=== PATIENT | male | born 1960 | race Caucasian/White ===

== ENCOUNTER 2020-07-02 08:30 | Emergency (ER) | payer MEDICARE, MEDICAID, SELFPAY ==
[2020-07-02 08:31] VITALS: BP 119/87; PULSE 115; RESP 18; TEMP 35.9; O2SAT 96; BMI 32.1
--- NOTE | 2020-07-02 08:48 | CT_ITS ---
STUDY: CT ABDOMEN AND PELVIS WITH CONTRAST REASON FOR EXAM: Male, 59 years old. Abdominal pain . One week history. History of renal carcinoma and prior right nephrectomy. -- IV PO Contrast RADIATION DOSAGE (If Supplied By Facility): CTDIvol = ( 21.86 ) mGy, DLP = ( 1541.78 ) mGycm TECHNIQUE: Transaxial images were obtained from the dome of the diaphragm to the symphysis pubis with oral contrast. Oral and amp;amp; IV Gastrografin and amp;amp; 100mL Isovue-300 was administered. Sagittal and coronal images were reconstructed. Individualized dose optimization techniques were used for this CT. COMPARISON: None. FINDINGS: The visualized lung bases are unremarkable. The visualized portions of the heart are within normal limits. There is decreased attenuation of the liver consistent with steatosis. Hepatomegaly. Normal gallbladder and extrahepatic biliary system. Normal spleen. Normal pancreas. Normal bilateral adrenal glands. The patient is status post right nephrectomy. 1.9 cm cyst in the anterior midportion of the left kidney. Normal visualized stomach. Normal small intestine. There are multiple colonic diverticula consistent with diverticulosis. The appendix is visualized and appears normal. There is diffuse atherosclerotic calcification of the abdominal aorta, without a demonstrated aneurysm. Normal inferior vena cava. Normal retroperitoneum. Normal urinary bladder. Normal abdominal wall. Prior laminectomy and interpedicular screw and abigail fixation at the L4-L5 and L5-S1 levels. CT/Abdomen/Pelvis WITH Contrast IMPRESSION: Sigmoid diverticulosis. Hepatomegaly and diffuse fatty infiltration of the liver. Status post right nephrectomy. Electronically Signed: Davis Infante MD at 11:15 EDT , Service support ,
--- NOTE | 2020-07-02 08:50 | ED.VIS.GEN ---
History of Present Illness Chief Complaint: Abd Pain Narrative: This patient is a 59-year-old male who presents with abdominal pain. This began about 1 week ago. It became severe yesterday. His pain is diffuse, nonfocal throughout the abdomen. He describes it as cramping in nature. It does radiate into his back. He reports nausea without vomiting. Diarrhea began yesterday. No blood in the stool. No urinary symptoms. He has a history of nephrectomy for kidney cancer. He denies any other abdominal surgeries. No fevers. Past Medical History - Allergies and Home Meds Allergies/Adverse Reactions: Allergies No Known Allergies Allergy (Verified 07/02/20 08:39) Primary Care Physician: Nathan Yousif DO [Primary Care Provider] - Past Medical History: - - Renal cancer Smoking Status: Current every day smoker Review of Systems All systems negative except as indicated General: Denies: Fever Eyes: Denies: Visual changes - bilaterally ENT: Denies: Bilateral ear pain Cardiovascular: Denies: Chest pain Respiratory: Denies: Dyspnea Gastrointestinal: Reports: Abdominal pain, Nausea, Diarrhea. Denies: Vomiting Musculoskeletal: Reports: Back pain. Denies: Myalgias, Arthralgias Skin: Denies: Rash Neurological: Denies: Headache Hematologic: Denies: Easy bruising Physical Exam Vital Signs/Narrative: Vital Signs Temp Pulse Resp BP Pulse Ox 07/02/20 08:31 96.6 F L 115 H 18 119/87 H 96 Inital Vital Signs reviewed: Yes General: Well nourished, Well developed Head: Normocephalic Eyes: EOMI ENT: Moist mucous membranes Neck: Supple Cardiovascular: Regular rhythm, Tachycardia Respiratory: No distress, CTA bilaterally Abdomen: Soft, Tender, - - Diffuse nonfocal abdominal tenderness without guarding without rebound nondistended. Negative for: Nondistended, Guarding, Rebound tenderness Skin: Normal color Neurological: Alert Psychological: Normal affect Diagnostic/Tx/Re-eval Impressions Abdomen/Pelvis CT 07/02/20 08:48 IMPRESSION: Sigmoid diverticulosis. Hepatomegaly and diffuse fatty infiltration of the liver. Status post right nephrectomy. Electronically Signed: Davis Infante MD at 11:15 EDT , Service support , 07/02/20 08:48 Abdomen/Pelvis WITH Contrast [CT] Stat Laboratory Results 07/02/20 07/02/20 07/02/20 08:50 08:50 12:00 WBC 8.8 RBC 5.32 Hgb 17.4 H Hct 51.6 MCV 97.0 H MCH 32.7 H MCHC 33.7 RDW Std Deviation 44.3 H RDW Coeff of Maye 12.6 Plt Count 242 MPV 10.5 Immature Gran % (Auto) 0.300 Neut % (Auto) 73.1 H Lymph % (Auto) 12.9 L [place] % (Auto) 9.6 Eos % (Auto) 3.8 Baso % (Auto) 0.3 Absolute Neuts (auto) 6.4 Absolute Lymphs (auto) 1.13 Nucleated RBC % 0 Sodium 137 Potassium 4.3 Chloride 104 Carbon Dioxide 25.0 Anion Gap 8 BUN 35 H Creatinine 1.57 H Estim Creat Clear Calc 52.31 Est GFR (MDRD) Af Amer 58 L Est GFR (MDRD) Non-Af 48 L BUN/Creatinine Ratio 22.3 H Glucose 167 H Calcium 8.8 Total Bilirubin 0.60 AST 20 ALT 43 Alkaline Phosphatase 77 Total Protein 7.6 Albumin 4.0 Globulin 3.6 Albumin/Globulin Ratio 1.1 Lipase 117 Urine Color Yellow Urine Clarity Clear Urine pH 5.0 Ur Specific [place] 1.010 Urine Protein 30 H Urine Glucose (UA) Normal Urine Ketones Negative Urine Occult Blood Negative Urine Nitrite Negative Urine Bilirubin Negative Urine Urobilinogen Normal Ur Leukocyte Esterase Negative Urine RBC 0-5 SEEN Urine WBC 0-5 SEEN Ur Squamous Epith Cells 0-5 SEEN Urine Bacteria 0 SEEN Urine Mucus 0 SEEN - Medical Decision Making Patient was treated with IV fluids, morphine, Zofran. On reevaluation his symptoms are improved but not resolved. He was given intramuscular Bentyl. His laboratory studies are unremarkable. CT imaging of the abdomen shows diverticulosis without diverticulitis. Not otherwise show acute process to explain the patient's symptoms. At this point I discussed with him that there is no clear indication for hospitalization. We could write prescriptions for Bentyl and Zofran for symptom control and refer to general surgery for outpatient follow-up should his symptoms continue. He is agreeable to this plan. He does understand to return for new or worsening symptoms. All questions answered at bedside. Patient discharged. ED Disposition - Plan for ED Patient: Disposition: Home or Assisted Living Diagnosis: Abdominal pain Instructions: ED Unknown Causes of Abdominal ... Prescriptions: Dicyclomine HCl [Bentyl] 20 mg PO TIDAC #20 capsule Prescription Printed Ondansetron [Zofran Odt] 4 mg PO Q8H PRN PRN #10 tablet PRN Reason: Nausea Prescription Printed Referrals: Nathan Yousif DO [Primary Care Provider] -
[2020-07-02] MEDS: Ondansetron 4 MG/2 ML Vial IV (08:57)
[2020-07-02] MEDS: 0.9% Normal Saline 1,000 ML 1000 ML IV (08:57)
[2020-07-02] MEDS: Morphine 4 MG/ML Syringe IV (08:57)
[2020-07-02 09:12] LABS: Absolute Lymphocyte Count 1.13 X10^3/uL (0.83-4.51); Absolute Neutrophil Count 6.4 X10^3/uL (2.0-7.7); Basophil# 0.03 X10^3/uL; Basophil% 0.3 % (0-1); Eosinophil# 0.33 X10^3/uL; Eosinophils% 3.8 % (0-5); Hematocrit 51.6 % (40-54); Hemoglobin 17.4 g/dL (13.0-16.5); Lymphocyte # 1.13 X10^3/ul (4.0); Lymphocyte % 12.9 % (19-41); Mean Corp Hgb Conc 33.7 g/dL (32-36); Mean Corpuscular Hgb 32.7 pg (27.0-32.0); Mean Platelet Vol. 10.5 fl (6.2-12.0); Monocyte# 0.84 X10^3/uL; Monocyte% 9.6 % (0-10); NRBC Flagged by Analyzer 0 % (0-5); Neutrophil # 6.43 X10^3/uL (2.7-7.7); Neutrophil % 73.1 % (47-70); Platelet Count 242 K/mm3 (150-450); RBC Distribution Width CV 12.6 % (11.6-14.6); RBC Distribution Width SD 44.3 fl (35.1-43.9); Red Blood Count 5.32 M/mm3 (4.6-6.2); White Blood Count 8.8 K/mm3 (4.4-11.0)
[2020-07-02 09:27] LABS: ALB/GLOB Ratio 1.1 RATIO (0.9-2.4); AST(SGOT) 20 U/L (15-37); Alanine Aminotransfer ALT/SGPT 43 U/L (16-61); Alkaline Phosphatase 77 U/L (45-117); Anion Gap 8 (5-15); BUN 35 mg/dL (7-18); BUN/Creat Ratio 22.3 RATIO (10-20); Calcium,Total 8.8 mg/dL (8.5-10.1); Chloride 104 mmol/L (98-107); Creatinine, Serum 1.57 mg/dL (0.70-1.30); EST Glomerular Filtration Rate 48 mL/min (>60); Est Glom Filt Rate - Afr Amer 58 mL/min (>60); Estimated Creatinine Clearance 52.31 ml/min; Globulin 3.6 g/dL (2.2-4.2); Glucose 167 mg/dL (74-106); Lipase 117 U/L (73-393); Potassium 4.3 mmol/L (3.5-5.1); Protein, Total 7.6 g/dL (6.4-8.2); Sodium Level 137 mmol/L (136-145)
[2020-07-02 10:23] VITALS: PULSE 102; RESP 18; O2SAT 90
[2020-07-02 11:13] VITALS: BP 118/65; PULSE 94; RESP 18; O2SAT 96
[2020-07-02 12:06] LABS: Bacteria 0 SEEN /hpf (None Seen); Mucous, Urine 0 SEEN /hpf (<or=2+)
[2020-07-02 12:22] LABS: Color, Urine Yellow (Yellow); Glucose, Dipstick Normal (Normal); Ketone-Dipstick Negative (Negative); Leukocyte Esterase-Dipstick Negative /ul (Negative); Nitrite-Dipstick Negative (Negative); Occult Blood-Urine Negative /ul (Negative); Protein-Dipstick 30 mg/dl (Negative); Urine Bilirubin Dipstick Negative (Negative); Urine Clarity Clear (Clear); Urine Urobilinogen Normal (Normal)
[2020-07-02 12:33] LABS: Red Blood Cells-Urine 0-5 SEEN /hpf (0-5); Squamous Epithelial Cells - UA 0-5 SEEN /hpf (0-5); White Blood Cells 0-5 SEEN /hpf (0-5)
[2020-07-02] MEDS: Dicyclomine 20 MG/2 ML Vial IM (13:05)
[2020-07-02 13:28] VITALS: BP 124/77; PULSE 62; RESP 15; O2SAT 98
== END 2020-07-02 13:29 | disposition home or self-care (01) ==
PROVIDERS: Emergency Provider Emergency Medicine; PCP Preventive Medicine Occupational Medicine
DX: R10.9 Unspecified abdominal pain (principal); F17.200 Nicotine dependence, unspecified, uncomplicated; Z90.5 Acquired absence of kidney; Z85.528 Personal history of other malignant neoplasm of kidney
CPT/HCPCS: 74177; 80053; 81001; 83690; 85025; 96372; 96374; 96375; 99285; J7030; Q9967; J2405

== ENCOUNTER → 2020-12-17 16:17 | Outpatient (CLI) | payer MEDICARE, MEDICAID, SELFPAY ==
--- NOTE | 2020-12-17 16:18 | MRI_ITS ---
STUDY: MRI CERVICAL SPINE WITHOUT CONTRAST REASON FOR EXAM: Male, 60 years old. pain L arm/shoulder TECHNIQUE: Standardized fat and water weighted pulse sequences were obtained in the sagittal and axial planes. COMPARISON: 02/16/2013 FINDINGS: Normal foramen magnum and brainstem-cervical cord junction. Normal craniovertebral junction. Normal anterior atlantoaxial articulation. Normal odontoid process. There is straightening of the normal cervical lordosis. Normal vertebral bodies and posterior osseous elements. C2-3: Normal endplates. Normal disc height, signal and morphology. Normal central canal and intervertebral neural foramina. C3-4: No change in a moderate-sized central disc extrusion which produces moderate spinal stenosis with abutment of the central spinal cord. C4-5: No change in the moderate broad disc osteophyte complex asymmetric to the right with right uncovertebral hypertrophy which produces moderate spinal stenosis with abutment of the right hemicord and moderate right neural foraminal stenosis. C5-6: No change in mild broad disc osteophyte complex which produces mild spinal stenosis but no neural foraminal stenosis. C6-7: No change in the mild broad disc of C5 complex which results in mild frontal stenosis but no neural foraminal stenosis. C7-T1: Mild bilobed disc osteophyte complex and bilateral artery due to hypertrophy produces mild spinal stenosis and moderate bilateral neural foraminal stenosis. No change in myelomalacia at the level of C7. Normal visualized soft tissue structures. MRI/Spine Cervical (Routine) IMPRESSION: No change from 02/16/2013. Electronically Signed: Luis A Eduardo MD at 13:26 EDT Tel , Service support ,
== END ==
PROVIDERS: PCP Preventive Medicine Occupational Medicine; Referring Provider Orthopaedic Surgery; Visit Provider Orthopaedic Surgery
DX: M48.00 Spinal stenosis, site unspecified (principal); M51.24 Other intervertebral disc displacement, thoracic region; M54.2 Cervicalgia
CPT/HCPCS: 72141

== ENCOUNTER 2021-12-15 12:00 | Outpatient (RCR) | payer MEDICARE, MEDICAID, SELFPAY ==
--- NOTE | 2021-09-22 13:37 | HP.PTEVAL ---
Patient's Visit Information BECKY COSBY is a 61 year old M referred to Physical Therapy by LOUIS ORDOÑEZ with a diagnosis of LBP AND BLE WEAKNESS. POST LAMINECTOMY SYNDROME AND ABDNORMAL GAIT. Date of Evaluation: 09/22/21 Physical Therapist: Sofia Benitez, PT, Cert MDT - Visit Plan Frequency: 2-3x /Week Plan: *START VERY VERY SLOW X AT LEAST 2-3 VISITS. *NEUTRAL SPINE ONLY*. *FALL RISK*. AQUATIC THERAPY FOR PAIN RELEIF, POSTURE CORRECTION/STRENGTHENING, INSTRUCTION IN APPROPRIATE BODY MECHANICS AND ACTIVITY MODIFICATIONS. DLS WITH A NEUTRAL SPINE TOLERATED. KAN LE ROM, STRETCHING AND STRENGTHENING. HEP INSTRUCTION. - Subjective Work/Leisure: UNEMPLOYEED. Disability: YES - APPROX 2004 FOR SPINE. Present symptoms: KAN LOW BACK AND LEG PAIN L>R. KAN LE NUMBNESS AND TINGLING. NEUROPATHY. Present since: 1988. Pain Scale: WORST 10/10, LEAST 3/10. Currently: 4/10. Commenced as a result of: RUPTURED DISC IN LOW BACK FOR NO APPARENT REASON 1988. Worse: WALKING, STANDING, BENDING OVER, DOING DISHES, REACHING. Better: LAYING DOWN, PAIN MEDICINE. Disturbed sleep: YES. Previous history/Previous treatment: PHYSICAL THERAPY, PAIN MEDICATIONS, TENS UNIT, CHIROPRACTOR, INJECTIONS. 3 LUMBAR SX'S STARTING IN 1988 AND LAST LUMBAR SX WAS 2013 - RODS. 1 NECK SX - 2002. 2 THORACIC SX'S 2007 AND 2012. PT HAS NOT HELPED IN THE PAST BUT HASN'T TRIED AQUATIC THERAPY THOUGH. PATIENT REPORTS HE HAS AN OVER-ACTIVE IMMUNE SYSTEM THAT IS EATING HIS SPINE. Coughing/sneezing/straining: POSITIVE. Gait: WOBBLY. LIKE A DRUNK. TIME AND DISTANCE LIMITED DUE TO BACK AND LEG PAIN. Bowel or Bladder Dysfunction: NO. Accidents: NO. Unexplained weight loss: NO. Imaging: NONE RECENT. PMH/Recent major surgery: KIDNEY REMOVAL FOR CA 2 YEARS AGO - NO CHEMO OR RADIATION. NIDDM. HTN, DYPLOPIA OF EYES - DOUBLE OR BLURRED VISION - MUSCLE WEAKNESS - DOES DRIVE. 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 - Objective THIS PATIENT AMBULATES INDEP'LY INTO PT WITH A VERY UNSTEADY GAIT, DECREASED KAN STRIDE LENGTH AND WIDE BASE OF SUPPORT. AFTER ABOUT 100 FEET HE IS BARELY ABLE TO KEEP WALKING. AFTER SITTING DOWN TO REST FOR A FEW MINUTES HE IS ABLE TO GO AGAIN. HE IS UE DEPENDENT TO TRANSFER FROM SIT TO STAND. CORE STRENGTH IS POOR. KAN LE STRENGTH IS GROSSLY 4-/5 WITH MMT'ING THROUGHOUT. DECREASED LLE LIGHT TOUCH SENSATION COMPARED TO RIGHT. TIGHT KAN HS'S AND GASTROC SOLEUS COMPLEX'S. HIS STANDING BALANCE IS FAIR MINUS AND HIS DYNAMIC BALANCE IS POOR. TREATMENT: GAIT TRAINING WITH FWW. PATIENT IS ABLE TO TAKING BIGGER STRIDE LENGTH AND IMPROVE CADANCE WITH USE OF WALKER VS WITHOUT AND REPORTS FEELING SAFER. PATIENT HAS A FWW AT HOME. *THIS PT STRONGLY RECOMMENDED WALKER FOR SAFETY AT ALL TIMES. PATIENT REPORTS HE FEELS SAFER WITH A WALKER BUT HAS BEEN AFRAID TO GET DEPENDENT ON ONE. THIS PT EDUCATED PATIENT ON BENEFITS OF WALKER AND ROLLATOR USE. PATIENT AGREEABLE. - Balance/Special Test Scores Oswestry Low Back Score: 32 - Goals Goal 1:: DECREASE C/O BACK AND KAN LE SX'S. Goal Time Frame: 6-8 Weeks Goal 2:: IMPROVE STANDING, WALKING AND ADL FUNCTION Goal Time Frame: 6-8 Weeks Goal 3:: PATIENT WILL BE INDEP WITH A POOL PROGRAM FOR CONTINUED IMPROVEMENT ONCE FORMAL PHYSICAL THERAPY CONCLUDES. Goal Time Frame: 6-8 Weeks - Anticipated Interventions Patient/Client Instruction: Educate patient on: Condition, Plan of Care, Risk Factors For the Purpose of:: To improve self management Therapeutic Exercise to Include: Strength training, Balance training, Body mechanics, Postural training, Flexibilty training, Gait and locomotor training, Neuromotor development, Biofeedback, Dynamic Lumbar Stabilization For the Purpose of:: To decrease pain, To increase ROM, To improve muscle performance and motor function, To increase tolerance to activity/condition/position, To improve ability of physical actions for home/community/work/leisure, To improve gait and locomotor functions Thank you for the opportunity to evaluate your patient. For Medicare and Medicare HMO plans, please review the plan of care and approve it. It will need to be FAXED BACK to us at [phone] for Medicare purposes. For Medicare only, by signing this I certify the plan of care. Please let me know if there are questions or concerns regarding this plan of care. Physician Signature: Date:
--- NOTE | 2021-11-04 14:10 | HP.PTREVAL_ITS ---
LOUIS ORDOÑEZ, It has been my pleasure to treat BECKY COSBY over the last 6 visits for LBP AND BLE WEAKNESS. POST LAMINECTOMY SYNDROME AND ABDNORMAL GAIT. Please see the progress note below for an update on the physical therapy plan of care! Subjective: PATIENT ACCIDENTALLY WENT TO THE POOL FIRST FOR PT TODAY. PATIENT REPORTS THAT LONG HE IS IN THE WATER AND EXERCISING IT HELPS HIS PAIN. PATIENT REPORTS HE WOULD LIKE TO TRY AT LEAST A LITTLE MORE THERAPY. REPORTS THAT OVER-ALL HE IS STILL HAVING SEVERE PAIN WITH STANDING AND WALKING. Objective/Function: PATIENT WAS SEEN TODAY FOR RE-ASSESSMENT OF PROGRESS TOWARD THE SET PT GOALS AND THE NEED FOR FURTHER PHYSICAL THERAPY VS READINESS FOR DISCHARGE. UPON EXAM TODAY THERE ARE NO SIGNIFICANT OBJECTIVE CHANGES COMPARED TO INITAL EVAL BUT [place] IS A GOOD CANDIDATE TO CONTINUE AQUATIC THERAPY BECAUSE HE HAS ONLY BEEN ABLE TO ATTEND 4 VISITS AND HE IS AT LEAST REPORTING TEMPORARY PAIN RELIEF IN THE WATER. PATIENT REPORTS HE IS USING A WALKER AT TIMES BUT DID NOT BRING IT TODAY (NO CANE TODAY EITHER). THIS PT AGAIN HIGHLY RECOMMEND USE OF WALKER AT ALL TIMES FOR SAFETY BUT PATIENT NOT AGREEABLE. PATIENT INQUIRING ABOUT HP POOL MEMBERSHIP FOR THE FUTURE WHEN COMPLETED PT DUE TO PAIN RELIEF HE IS GETTING IN THE POOL. Plan Plan: *f/u with new HEP tasks. *FALL RISK*. AQUATIC THERAPY FOR PAIN RELEIF, POSTURE CORRECTION/STRENGTHENING, INSTRUCTION IN APPROPRIATE BODY MECHANICS AND ACTIVITY MODIFICATIONS. DLS WITH A NEUTRAL SPINE TOLERATED. KAN LE ROM, STRETCHING AND STRENGTHENING. HEP INSTRUCTION. Balance/Gait/Functional tests - Balance/Special Test Scores Oswestry Low Back Score: 32 Goals Goal 1:: DECREASE C/O BACK AND KAN LE SX'S. Goal Time Frame: 6-8 Weeks Goal Progress: Progressing Goal 2:: IMPROVE STANDING, WALKING AND ADL FUNCTION Goal Time Frame: 6-8 Weeks Goal Progress: Not Progressing Goal 3:: PATIENT WILL BE INDEP WITH A POOL PROGRAM FOR CONTINUED IMPROVEMENT ONCE FORMAL PHYSICAL THERAPY CONCLUDES. Goal Time Frame: 6-8 Weeks Goal Progress: Progressing Anticipated Interventions Patient/Client Instruction: Educate patient on: Condition, Plan of Care, Risk Factors For the Purpose of:: To improve self management Therapeutic Exercise to Include: Strength training, Balance training, Body mecha nics, Postural training, Flexibilty training, Gait and locomotor training, Neuromotor development, Biofeedback, Dynamic Lumbar Stabilization For the Purpose of:: To decrease pain, To increase ROM, To improve muscle performance and motor function, To increase tolerance to activity/condition/position, To improve ability of physical actions for home/community/work/leisure, To improve gait and locomotor functions Please do not hesitate to contact me at [phone] by phone or if you have questions or concerns regarding this new plan of care! Sincerely, Sofia Benitez, PT, Cert MDT
--- NOTE | 2021-12-15 12:36 | HP.PTDCSUM_ITS ---
It has been my pleasure to treat BECKY COSBY referred by LOUIS ORDOÑEZ, with the diagnosis of LBP AND BLE WEAKNESS. POST LAMINECTOMY SYNDROME AND ABDNORMAL GAIT for a total of 11 visit(s). Discharge Date: 12/15/21 Please see the following information for a summary of their discharge status. Subjective: PATIENT REPORTS HE IS STILL GETTING SEVERE PAIN WITH WALKING. PATIENT REPORTS PAIN REDUCTION WHILE IN THE POOL BUT EVEN WITH LIGHT POOL EX HE HAS INCREASED PAIN THE NEXT MORNING. FOLLOW UP PENDING WITH DR. BARDALES NEXT WEEK. REPORTS PAIN MGMT RECOMMENDS MORE JANAY'S BUT HE IS DECLINING AT THIS TIME. PATIENT REPORTS HE CAN GET MUCH BENEFIT FROM A HOT SHOWER AND A HEATING PAD HE CAN FROM GETTING IN THE POOL SO HE IS JUST GOING TO STICK WITH THAT. PATIENT REPORTS HE HAS A REFERRAL TO SEE AN DEPUTY [employer] ATTORNEY THAT HE PLANS TO PURSUE. Lumbar Spine Pain Intensity (Out of 10): 6 % Improvement: 0 Objective/Function: PATIENT WAS SEEN TODAY FOR RE-ASSESSMENT OF PROGRESS TOWARD THE SET PT GOALS AND THE NEED FOR FURTHER PHYSICAL THERAPY VS READINESS FOR DISCHARGE. UPON EXAM TODAY THERE ARE NO SIGNIFICANT OBJECTIVE CHANGES COMPARED TO INITAL EVAL. THIS PT AGAIN HIGHLY RECOMMENDS USE OF WALKER AT ALL TIMES FOR SAFETY BUT PATIENT NOT AGREEABLE. HE DID AMBULATE INTO PT TODAY WITH ONE FOREARM CRUTCH AND HE IS SAFER WITH THE CRUTCH THAN WITHOUT ANYTHING. PATIENT HAS ONLY ATTENDED APPROX 8 POOL SESSIONS SINCE INITIAL EVAL 09/22/21. PATIENT INQUIRING ABOUT HP POOL MEMBERSHIP FOR THE FUTURE WHEN COMPLETED PT DUE TO TEMPORARY PAIN RELIEF HE IS GETTING IN THE POOL. Goal 1:: DECREASE C/O BACK AND KAN LE SX'S. Goal Progress: Not Progressing Goal 2:: IMPROVE STANDING, WALKING AND ADL FUNCTION Goal Progress: Not Progressing Goal 3:: PATIENT WILL BE INDEP WITH A POOL PROGRAM FOR CONTINUED IMPROVEMENT ONCE FORMAL PHYSICAL THERAPY CONCLUDES. Goal Progress: Not Progressing Plan: D/C DUE TO LACK OF PROGRESS. PATIENT IS AGREEABLE. If there are questions or concerns regarding this patient's physical therapy, please feel free to call me at [phone]. Thank you for the referral of this patient. Sincerely, Sofia Benitez, PT, Cert MDT Balance/Gait/Functional tests - Balance/Special Test Scores Oswestry Low Back Score: 31
== END 2021-12-15 19:00 | disposition home or self-care (01) ==
LOC: PT 12:00
PROVIDERS: PCP Preventive Medicine Occupational Medicine
DX: M96.1 Postlaminectomy syndrome, not elsewhere classified (principal); R26.89 Other abnormalities of gait and mobility
CPT/HCPCS: 97113; 97162; 97164; 97530

== ENCOUNTER 2024-06-04 18:57 | Emergency (ER) | payer MEDICARE, MEDICAID, SELFPAY ==
[2024-06-04 18:58] VITALS: BP 188/80; PULSE 105; RESP 18; TEMP 36.4; O2SAT 100
[2024-06-04 19:57] VITALS: PULSE 100; RESP 18; O2SAT 100
[2024-06-04 20:04] VITALS: BMI 27.5
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
[2024-06-04 21:00] VITALS: PULSE 95; RESP 17; O2SAT 98
[2024-06-04] MEDS: Cephalexin 500 MG Capsule PO (21:25)
== END 2024-06-04 21:33 | disposition home or self-care (01) ==
PROVIDERS: Emergency Provider Emergency Medicine; PCP Preventive Medicine Occupational Medicine; Visit Provider Emergency Medicine
DX: S81.812A Laceration without foreign body, left lower leg, initial encounter (principal); E11.9 Type 2 diabetes mellitus without complications; S80.12XA Contusion of left lower leg, initial encounter; W22.8XXA Striking against or struck by other objects, initial encounter; Z79.84 Long term (current) use of oral hypoglycemic drugs; F17.210 Nicotine dependence, cigarettes, uncomplicated
CPT/HCPCS: 99282

== ENCOUNTER 2024-06-26 11:15 | Outpatient (RCR) | payer MEDICARE, MEDICAID, SELFPAY ==
[2024-06-12 10:25] VITALS: BP 172/105; PULSE 100; RESP 18; BMI 26.6
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
--- NOTE | 2024-06-13 09:56 | WC ---
PHOTO 06/12/24 LEFT LATERAL LE (I)
--- NOTE | 2024-06-13 10:01 | WC ---
PHOTO 06/12/24 LEFT LAT PEYTON (I)
--- NOTE | 2024-06-18 11:41 | WC ---
[facility] accepted and will start on MondayJune 24.
[2024-06-26 11:33] VITALS: BP 164/81; PULSE 100; RESP 18; TEMP 36.2; BMI 26.6
--- NOTE | 2024-06-26 14:19 | PCM.WC.PN ---
History of Present Illness Date of Service: 06/26/24 Chief Complaint: Full-thickness laceration left leg History of Wound: Full-thickness laceration left leg Progress of Wound: Stable full-thickness wound, left leg Subjective Subjective Mr. Avalos is a 63-year-old male presented wound care center today for follow-up evaluation of full-thickness wound secondary to trauma to the left leg. He has been doing dressing changes as ordered. He admits improvement to the leg. He missed his appointment last week due to ride issues. He still admits to smoking. Denies any new onset of trauma. Denies constitutional symptoms. No other pedal complaints at this time. Objective Data Objective Data Vital Signs: Vital Signs Temp Pulse Resp BP O2 Del Method 97.1 F L 100 18 164/81 H Room Air 06/26/24 11:33 06/26/24 11:33 06/26/24 11:33 06/26/24 11:33 06/26/24 11:33 Oxygen Delivery Method Room Air Weight: 81.647 kg Body Mass Index (BMI) 26.6 Lab / Micro Data Micro: Microbiology 06/12/24 11:00 Ulcer, Decubitus - Leg, Left Gram Stain - Final 06/12/24 11:00 Ulcer, Decubitus - Leg, Left Wound Culture - Final Staphylococcus cohnii urealyti 06/12/24 11:00 Ulcer, Decubitus - Leg, Left Anaerobic Culture - Final No growth in 5 days. Physical Exam Narrative Vascular: Audible Doppler sounds, DP is biphasic, PT is monophasic. Skin temperature gradient is warm to cool from proximal ankles to distal digits left lower extremity. CFT is brisk. Ecchymosis has improved to left lower extremity. Neurological: Light touch intact. Patient does respond to painful stimuli. Dermatological: Full-thickness wound to the left anterior leg measuring 9.5 x 6.3 x 0.2 cm. Hematoma has improved. Wound base is granular. No malodor or sign of infection. Excisional debridement down to and including subcutaneous tissue, fascia and muscle with a number 5 mm dermal curette and pickup to the full-thickness laceration/wound to the anterior lateral left leg. Predebridement measurement was 9.0 x 6.0 x 0.1 cm. Post right measurement is 9.5 x 6.3 x 0.2 cm. Musculoskeletal: Moderate palpatory tenderness appreciated to full-thickness laceration to left leg. No pain with calf compression. Debridement Note Debridement Note Debridement Free Text: Excisional debridement down to and including subcutaneous tissue, fascia and muscle with a number 5 mm dermal curette and pickup to the full-thickness laceration/wound to the anterior lateral left leg. Predebridement measurement was 9.0 x 6.0 x 0.1 cm. Post right measurement is 9.5 x 6.3 x 0.2 cm. Post-Debridement Measurements and Additional Note: Post-Debridement Measurements/Treatment WC - Nurse 1 - General Ulcer Assessment Start: 06/12/24 10:22 Freq: Status: Active Protocol: WC.LOWEXT Activity Type Activity Date Activity User E-sign Co-sign Detail Recorded Client Recorded Date Recorded By Document 06/12/24 10:25 KW [id number] 06/12/24 10:43 KW Document 06/26/24 11:33 KW [id number] 06/26/24 11:40 KW 06/12/24 06/26/24 10:25 11:33 WC - Today's Visit Information Type of service Initial Visit Follow-up Visit (Physician/SCALE ATTENDANT ) Arrival Mode Ambulatory, Ambulatory, Walker Walker Patient Identification Verified (Name & Yes Yes ) Height and Weight Height 5 ft 9 in Weight 81.647 kg Weight in Pounds 180.0 lbs Weight Measurement Method Estimated by Patient Body Mass Index (BMI) 26.6 26.6 BMI Classification Overweight Overweight Vital Signs Temperature (97.8 F-99.1 F) 97.1 F L Temperature Source Temporal Pulse Rate (60-100) 100 100 Pulse Location Monitor Monitor Respiratory Rate (12-18) 18 18 Respiratory rate source Observation Observation Oxygen Delivery Method Room Air Room Air Blood Pressure (90/60-120/80) 172/105 H 164/81 H Blood Pressure Mean (mm Hg) 127 108 Source Monitor Monitor Position Semi-Fowlers Semi-Fowlers Blood Pressure Location Left Arm Right Arm History Since Last Visit- (Skip if this is Patient's initial visit) Have you changed medications since your No last visit? Any new allergies or adverse reactions No Had a fall/change in ADL's that may No increase risk of falls Signs or symptoms of abuse and/or No neglect since last visit Have you been in the hospital since your No last visit? Has dressing in place as prescribed Yes Has compression in place as prescribed N/A Has offloadiing in place as prescribed N/A Experienced any changes in pain level or No management Left Footwear Regular Shoe Regular Shoe Right Footwear Regular Shoe Regular Shoe Pain Scale: 0-10 Numeric Is Patient Pain Free? No Yes back and neck -Description Sharp,Burning, Tightness, Aching Lower Extremity Assessment/ Foot Assessment/ Toe Nail Assessment Right -Posterior Tibial Doppler Monophasic -Dorsalis Pedis Doppler Multiphasic -Extremity Color Normal -Hair Growth on Legs No -Hair Growth on Toes No -Thick No -Discolored No -Deformed No -Improper Length & Hygeine No Left -Posterior Tibial Doppler Monophasic -Dorsalis Pedis Doppler Monophasic -Extremity Color Red, Hyperpigmented, Hemosiderin -Hair Growth on Legs No -Hair Growth on Toes No -Thick No -Discolored No -Deformed No -Improper Length & Hygeine No Communication Assessment Preferred language Upper Sorbian Test Engine Mechanic Required No Able to Read Yes Able to Write Yes Communication Tools None Caregiver Communication Skills No Impairment Impairment Right Hearing Abillity Normal Left Hearing Abillity Normal Visual Assistive Devices None Teaching Assessment Preferences Verbal,Written, Demonstration Barriers to Learning None Readiness To Learn Excellent Willingness to Engage in Self Management High Activies Readiness to Engage in Self Management High Activities Anxiety Level Calm Cooperation Cooperative Perception Coherent Interest in Health Problem Asks Questions Education Importance Acknowledges Need Does Patient Smoke tobacco or other Yes substances Smoking Status Current every day smoker Is Patient Diabetic Yes Functional Assessment Recent Decline in Ability to Perform Denies Any Declines Culture/Shinto/Salesforce Administrator Cultural/Shinto Needs that may affect No Treatment Plan Would you allow our hospital armature repairer to No meet you for the purpose of spiritual/ emotional support? Salesforce Administrator to contact place of synagogue No WC - Nurse 1 - General Ulcer Measurement Start: 06/12/24 10:22 Freq: Status: Active Protocol: Activity Type Activity Date Activity User E-sign Co-sign Detail Recorded Client Recorded Date Recorded By Document 06/12/24 10:25 KW [id number] 06/12/24 10:43 KW Document 06/26/24 11:33 KW [id number] 06/26/24 11:40 KW 06/12/24 06/26/24 10:25 11:33 Wound Center Nurse 1 #1 LT LAT LE -Current Size (cm) - Length 9.4 0.1 -Current Size (cm) - Width 2.2 0.1 -Current Size (cm) - Depth 0.4 0.1 -Total Square Cm 20.68 0.01 -Date of Last Picture (Recall this 06/12/24 06/26/24 field) -Exudate Amt Large Medium -Exudate Type Serosanguineous Serosanguineous -Wound Margin Distinct, Distinct, Outline Outline Attached Attached -Granulation Amt Large (67-100%) Medium (34-66%) -Granulation Quality Red Red -Necrosis Amt Large (67-100%) Medium (34-66%) -Necrotic Tissue Type Eschar Eschar -Texture (Lori-wound Skin Appearance) Assessed Assessed -Moisture (Lori-wound Skin Appearance) Assessed Assessed -Color (Lori-wound Skin Appearance) Assessed, Assessed, Ecchymosis, Erythema Erythema, Hemosiderin Staining -Temperature (Lori-wound Skin No Abnormality No Abnormality Appearance) (Pt Warm) (Pt Warm) -Tenderness on Palpation (Lori-wound No No Skin Appearance) -Ulcer Cleansing Soap and Water Soap and Water -Foul Odor after Cleansing No No -Anesthetic Used 4% Lidocaine 5% Lidocaine Solution Gel Left Calf (cm) 30.7 Left Ankle (cm) 21 WC - Nurse 2 - General Ulcer CM Notes Start: 06/12/24 10:22 Freq: Status: Active Protocol: Activity Type Activity Date Activity User E-sign Co-sign Detail Recorded Client Recorded Date Recorded By Document 06/12/24 11:10 RADHA [id number] 06/12/24 11:11 Document 06/26/24 12:00 [id number] 06/26/24 12:03 06/12/24 06/26/24 11:10 12:00 Wound Center Nurse 2 #1 LT LAT LE -Time 11:10 12:00 -Correct Patient Yes Yes -Correct Side, Site, Position Yes Yes -Correct Procedure Yes Yes -Procedure Performed Yes Yes -Type of Procedure Debridement Debridement -Clinical Debridement Muscle / Fascia Subcutaneous -Tissue Removed Muscle,Fascia Subcutaneous -Post Debridement (cm) - Length 9.5 9.5 -Post Debridement (cm) - Width 2.6 6.3 -Post Debridement (cm) - Depth 0.2 0.2 -Total Square (Post) (cm) 24.70 59.85 -Area of Debridement (cm) - Length 9.5 9.5 -Area of Debridement (cm) - Width 2.6 6.3 -Total Square (Area) (cm) 24.70 59.85 -Tunneling No No -Undermining/Tunneling No No -Circular Undermining No No -Wound/Ulcer Outcome Not Healed Not Healed -Ulcer Cleansing Rinsed/ Rinsed/ Irrigated with Irrigated with Saline Saline -Foul Odor after Cleansing No No -Bioengineered Tissue No No -Bleeding Controlled with Pressure Pressure -Treatment Response Procedure Procedure Tolerated Well Tolerated Well -Offloading No No -Debridement - Subq, 1st 20sq cm Yes -Debridement, SubQ, ea addt'l 20sq cm 2 or part thereof -Debridement - Muscle / Fascia, 1st Yes 20sq cm -Debridement, Muscle/Fascia, ea addt'l 1 20sq cm or part thereof Pain Scale: 0-10 Numeric Is Patient Pain Free? Yes Yes - Nurse 3 - General Ulcer D/C NN Start: 06/12/24 10:22 Freq: Status: Active Protocol: Activity Type Activity Date Activity User E-sign Co-sign Detail Recorded Client Recorded Date Recorded By Document 06/12/24 11:32 DL [id number] 06/12/24 11:34 DL Document 06/26/24 12:14 DL [id number] 06/26/24 12:15 DL 06/12/24 06/26/24 11:32 12:14 Wound Care Center Nurse 3 #1 LT LAT LE -Ulcer Cleansing Rinsed/ Rinsed/ Irrigated with Irrigated with Saline Saline -Foul Odor after Cleansing No No -Primary Dressing Applied NonAdherent NonAdherent Contact Layer Contact Layer -Other Dressing betadine betadine gauze -Primary Dressing Covered/Secured with Dry Gauze & Dry Gauze & Roll Gauze, Roll Gauze, Secured with Secured with Tape Tape -Other Covering ABD ABD LLE -Tubular Bandage Single Layer Single Layer -Size of Tubigrip Used Size E Size E -Size E ($) 1 1 Treatment Response Procedure Procedure Tolerated Well Tolerated Well Pain Scale: 0-10 Numeric Is Patient Pain Free? Yes Yes - Visit Discharge Discharge Condition Stable Stable Ambulatory Status Ambulatory, Ambulatory Walker Transportation Private Auto Private Auto Facility Type Home Health Orders Sent Yes Assessment/Plan Assessment/Plan (1) Type 2 diabetes mellitus with foot ulcer: CODE(S): E11.621 - Type 2 diabetes mellitus with foot ulcer; L97.509 - Non-pressure chronic ulcer of other part of unspecified foot with unspecified severity QUALIFIERS: Diabetes mellitus skilled nursing insulin use: with terminal press operator use Qualified Code(s): E11.621 - Type 2 diabetes mellitus with foot ulcer; L97.509 - Non-pressure chronic ulcer of other part of unspecified foot with unspecified severity; Z79.4 - nursing home (current) use of insulin PLAN: Patient was examined and evaluated. All findings were discussed with the patient. All questions were answered to the patient's satisfaction. Excisional debridement down to and including subcutaneous tissue, fascia and muscle with a number 5 mm dermal curette and pickup to the full-thickness laceration/wound to the anterior lateral left leg. Predebridement measurement was 9.0 x 6.0 x 0.1 cm. Post right measurement is 9.5 x 6.3 x 0.2 cm. Left lower extremity are clean and patted dry. Full-thickness wound was dressed with Adaptic Betadine soaked gauze dry sterile dressing and light compression wrap was donned to left lower extremity. Patient will do every other day dressing changes as ordered. Will begin authorization for amniotic skin graft substitute to help speed the patient's slow healing ulceration/laceration at this time. Encouraged the patient to continue smoking sensation. Patient will follow-up with the vascular lab for vascular studies on 07/03/2024. Follow-up at the wound care center with Dr. Jones in 1 week. (2) Non-pressure chronic ulcer of other part of left lower leg with fat layer exposed: CODE(S): L97.822 - Non-pressure chronic ulcer of other part of left lower leg with fat layer exposed (3) Other specified peripheral vascular diseases: CODE(S): I73.89 - Other specified peripheral vascular diseases
--- NOTE | 2024-06-26 15:13 | WC ---
PHOTO 06/26/24 MARIELA
--- NOTE | 2024-07-01 15:20 | WC ---
Pina from [facility] called asking for verification for ordering provider on wound supplies and a verbal to go ahead and release order of supplies to pt. Supplies to arrive this week.
== END 2024-07-01 23:59 | disposition home or self-care (01) ==
LOC: WC 11:15
PROVIDERS: PCP Preventive Medicine Occupational Medicine; Referring Provider Nurse Practitioner Primary Care; Visit Provider Podiatrist Foot & Ankle Surgery
DX: E11.621 Type 2 diabetes mellitus with foot ulcer (principal); L97.825 Non-pressure chronic ulcer of other part of left lower leg with muscle involvement without evidence of necrosis; E11.51 Type 2 diabetes mellitus with diabetic peripheral angiopathy without gangrene; S81.812S Laceration without foreign body, left lower leg, sequela; Z79.84 Long term (current) use of oral hypoglycemic drugs; F17.210 Nicotine dependence, cigarettes, uncomplicated; V48 Car occupant injured in noncollision transport accident; Z79.899 Other long term (current) drug therapy
CPT/HCPCS: 11042; 11043; 11045; 11046; 87070; 87075; 87077; 87186; 87205; 99214; G0463

== ENCOUNTER → 2024-07-23 | Outpatient (CLI) | payer MEDICARE, MEDICAID, SELFPAY ==
--- NOTE | 2024-07-23 14:37 | NEURO ---
NCS and/or EMG Patient Report Ordering Doctor: MATTHEW PARIKH DATE OF SERVICE: 07/23/24 Clinical Summary: 63 year old male patient with symptoms of weakness, pain, numbness, and tingling in the left upper extremity. Nerve Conduction Studies Summary: Nerve conduction studies were performed in the left upper extremity. The left ulnar-D5 SNAP was absent. The left ulnar-FDI CMAP amplitude dropped more than 10% across the elbow. The absolute left ulnar motor conduction velocity was reduced at the elbow. Needle Examination Summary: Needle examination of select muscles of the left upper extremity was normal demonstrated increased insertional activity and spontaneous activity (positive sharp waves and fibrillation potentials) in the left deltoid and biceps muscles. There was a higher proportion of motor unit action potentials with reduced recruitment, increased amplitude, increased duration, and polyphasia in the left biceps, flexor carpi radialis, flexor carpi ulnaris, extensor indicis proprius, and first dorsal interosseous muscle. There was reduced recruitment, decreased amplitude, decreased duration, and polyphasia in the left deltoid muscle. Impression: This is an abnormal study. 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
== END | disposition home or self-care (01) ==
LOC: PSN 13:39
PROVIDERS: PCP Preventive Medicine Occupational Medicine; Referring Provider Physician Assistant Medical; Visit Provider Physician Assistant Medical
DX: R29.898 Other symptoms and signs involving the musculoskeletal system (principal)
CPT/HCPCS: 95886; 95910

== ENCOUNTER 2024-07-31 09:30 | Outpatient (RCR) | payer MEDICARE, MEDICAID, SELFPAY ==
[2024-07-02 00:58] VITALS: BP 164/81; PULSE 100; RESP 18; TEMP 36.2; BMI 26.6
--- NOTE | 2024-07-03 09:48 | ART_ITS ---
Reason For Study Reason For Study: LT Leg Wound Left Segmental Pressures Left brachial= 170mmHg. Left posterior tibial artery = 177mmHg. Left dorsalis pedis artery = 190mmHg. Left digit = 145 mmHg. The left posterior tibial artery waveforms are triphasic. The left dorsalis pedis waveforms are triphasic. Right Segmental Pressures Right brachial= 167mmHg. Right posterior tibial artery = 196mmHg. Right dorsalis pedis artery = 179mmHg. Right digit = 130 mmHg. The right posterior tibial artery waveforms are triphasic. The right dorsalis pedis waveforms are triphasic. Indices The right ankle brachial index by the posterior tibial artery is 1.15. The right ankle brachial index by the dorsalis pedis is 1.05. The right digital-brachial index is 0.76. The left ankle brachial index by the posterior tibial artery is 1.04. The left ankle brachial index by the dorsalis pedis is 1.12. The left digital-brachial index is 0.85. VL/Lower Ext Art Exam w/o Exercis Interpretation Summary Triphasic Doppler waveforms are noted at ankle level bilaterally. Pulse-volume recordings appear satisfactory at all levels bilaterally. Resting ankle-brachial indices are normal bilaterally. Digi kumar-brachial indices are normal bilaterally. There is no evidence of significant arterial occlusive disease in the lower ext remities bilaterally. Ordering Physician: Carlton Jones Referring Physician: Nathan Yousif Performed By: Kaveh Fu RVT
--- NOTE | 2024-07-03 09:48 | VDLE_ITS ---
Reason For Study Reason For Study: Lt Leg Wound RIGHT LEFT CFV is compressible, spontaneous, phasic, competent CFV is compressible, spontaneous, phasic, competent, and demonstrates normal augmentation. and demonstrates normal augmentation. FV is compressible, spontaneous, phasic, competent FV is compressible, spontaneous, phasic, competent and demonstrates normal augmentation. and demonstrates normal augmentation. POP V is compressible, spontaneous, phasic, competent POP V is compressible, spontaneous, phasic, competent and demonstrates normal augmentation. and demonstrates normal augmentation. T/P Trunk is compressible. T/P Trunk is compressible. PTV is compressible. PTV is compressible. RT PerV is compressible. LT PerV is compressible. SFJ is competent and measures 0.69 cm. SFJ is competent and measures 0.49 cm. GSV proximal thigh measures 0.28 x 0.27 cm. GSV proximal thigh measures 0.30 x 0.31 cm. GSV at knee measures 0.14 x 0.13 cm. GSV at knee measures 0.28 x 0.30 cm. GSV is competent throughout. GSV is competent throughout. SSV mid calf is competent and measures 0.24 x 0.26 SSV mid calf is competent and measures 0.28 x 0.28 cm. cm. Procedure Exam performed in department. This is a venous duplex using B-mode, color flow and spectral Doppler. The exam was diagnostic. VL/Venous Duplex US - Jose Manuel Extrem Interpretation Summary Deep veins of the lower extremities are bilaterally patent and compressible seg mentally. There is no evidence of deep vein thrombosis on either side. Valvular competence appears intact within the p roximal deep venous systems bilaterally. The great saphenous veins appear bilaterally patent and compressible segmentall y. Sapheno-femoral junctions are bilaterally competent . Valvular competence appears to be intact segmentally wi thin the great saphenous veins bilaterally. Small saphenous veins are patent and competent bilaterally. Ordering Physician: Carlton Jones Referring Physician: Nathan Yousif Performed By: Kaveh Fu RVT
[2024-07-03 11:51] VITALS: BP 156/81; PULSE 95; RESP 18; TEMP 35.8; BMI 26.6
--- NOTE | 2024-07-03 13:06 | PCM.WC.PN ---
History of Present Illness Date of Service: 07/03/24 Chief Complaint: Full-thickness laceration left leg History of Wound: Full-thickness laceration left leg Progress of Wound: Stable full-thickness wound left leg Subjective Subjective Mr. Avalos is a 63-year-old diabetic male presenting to wound care center today for follow-up evaluation of full-thickness wound secondary to trauma to the left lower extremity. Patient has a new proximal wound to the left leg that he thinks he got by scratching at himself. His blood sugars been well-controlled. He continues to smoke. He did get his vascular studies done today. He does not know the results at this time. He denies any new onset of trauma. Denies constitutional symptoms. Other pedal complaints at this time. Objective Data Objective Data Vital Signs: Vital Signs Temp Pulse Resp BP 96.5 F L 95 18 156/81 H 07/03/24 11:51 07/03/24 11:51 07/03/24 11:51 07/03/24 11:51 Weight: 81.647 kg Body Mass Index (BMI) 26.6 Physical Exam Narrative Vascular: Audible Doppler sounds, DP is biphasic, PT is monophasic. Skin temperature gradient is warm to cool from proximal ankles to distal digits left lower extremity. CFT is brisk. No ecchymosis. Neurological: Light touch intact. Patient does respond to painful stimuli. Dermatological: Full-thickness wound to the superior aspect of the left lower extremity measuring 1.1 x 0.8 x 0.1 cm. Wound is stable with no sign of infection. Full-thickness wound to the left lower leg secondary to trauma, wound measurement is 9.1 x 5.7 x 0.1 cm. No sign of infection. Excisional debridement down to including subcutaneous tissue with a number 5 mm dermal curette to the left superior full-thickness wound done without incident. Predebridement measurement was 1.0 x 0.7 x 0.1 cm. Postdebridement measurement is 1.1 x 0.8 x 0.1 cm. Excisional debridement down to including subcutaneous tissue with a number 5 mm dermal curette to the left inferior full-thickness wound done without incident. Predebridement measurement was 8.9 x 5.5 x 0.1 cm. Postdebridement measurement is 9.1 x 5.7 x 0.1 cm. EpiFix 4.0 x 4.5 cm was applied to the left full-thickness ulceration with 100% use. First application. The graft site was free and clear of any infection. The wound/skin graft substitute was dressed with nonadherent bandage secured in place with Steri-Strips followed by bolster dressing as well as a double layer Tubigrip. Musculoskeletal: Mild pain on palpation to both wounds left lower extremity. No pain with calf compression bilateral. Debridement Note Debridement Note Debridement Free Text: Excisional debridement down to including subcutaneous tissue with a number 5 mm dermal curette to the left superior full-thickness wound done without incident. Predebridement measurement was 1.0 x 0.7 x 0.1 cm. Postdebridement measurement is 1.1 x 0.8 x 0.1 cm. Excisional debridement down to including subcutaneous tissue with a number 5 mm dermal curette to the left inferior full-thickness wound done without incident. Predebridement measurement was 8.9 x 5.5 x 0.1 cm. Postdebridement measurement is 9.1 x 5.7 x 0.1 cm. EpiFix 4.0 x 4.5 cm was applied to the left full-thickness ulceration with 100% use. First application. The graft site was free and clear of any infection. The wound/skin graft substitute was dressed with nonadherent bandage secured in place with Steri-Strips followed by bolster dressing as well as a double layer Tubigrip. 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 ) Arrival Mode Ambulatory, Walker Transfer Assistance None Patient Identification Verified (Name & Yes ) Patient Requires Transmission-Based No Precautions Height and Weight Body Mass Index (BMI) 26.6 BMI Classification Overweight Vital Signs Temperature (97.8 F-99.1 F) 96.5 F L Temperature Source Temporal Pulse Rate (60-100) 95 Pulse Location Monitor Respiratory Rate (12-18) 18 Respiratory rate source Observation Blood Pressure (90/60-120/80) 156/81 H Blood Pressure Mean (mm Hg) 106 History Since Last Visit- (Skip if this is Patient's initial visit) Have you changed medications since your No last visit? Any new allergies or adverse reactions No Had a fall/change in ADL's that may No increase risk of falls Signs or symptoms of abuse and/or No neglect since last visit Have you been in the hospital since your No last visit? Has dressing in place as prescribed Yes Has compression in place as prescribed Yes Has offloadiing in place as prescribed Yes Experienced any changes in pain level or No management Left Footwear Regular Shoe Right Footwear Regular Shoe Pain Scale: 0-10 Numeric Is Patient Pain Free? Yes WC - Nurse 1 - General Ulcer Measurement Start: 07/03/24 11:51 Freq: Status: Active Protocol: Activity Type Activity Date Activity User E-sign Co-sign Detail Recorded Client Recorded Date Recorded By Document 07/03/24 11:51 DL [id number] 07/03/24 11:54 DL 07/03/24 11:51 Wound Center Nurse 1 #2 L Sup [place] -Current Size (cm) - Length 1 -Current Size (cm) - Width 0.8 -Current Size (cm) - Depth 0.1 -Total Square Cm 0.8 -Photo Taken Yes -Exudate Amt Medium -Exudate Type Serosanguineous -Wound Margin Distinct, Outline Attached -Granulation Amt Small (1-33%) -Granulation Quality [place] -Necrosis Amt Small (1-33%) -Necrotic Tissue Type Adherent Slough -Structure Exposed N/A -Texture (Lori-wound Skin Appearance) Scarring -Moisture (Lori-wound Skin Appearance) Dry/Scaly -Color (Lori-wound Skin Appearance) Hemosiderin Staining -Temperature (Lori-wound Skin No Abnormality Appearance) (Pt Warm) -Ulcer Cleansing Soap and Water -Foul Odor after Cleansing No -Anesthetic Used 5% Lidocaine Gel #1 LT LAT LE -Current Size (cm) - Length 9 -Current Size (cm) - Width 6.4 -Current Size (cm) - Depth 0.1 -Total Square Cm 57.6 -Photo Taken Yes -Exudate Amt Medium -Exudate Type Serosanguineous -Wound Margin Distinct, Outline Attached -Granulation Amt Medium (34-66%) -Granulation Quality Red -Necrosis Amt Medium (34-66%) -Necrotic Tissue Type Adherent Slough -Structure Exposed N/A -Texture (Lori-wound Skin Appearance) Scarring -Moisture (Lori-wound Skin Appearance) Dry/Scaly -Color (Lori-wound Skin Appearance) Hemosiderin Staining -Temperature (Lori-wound Skin No Abnormality Appearance) (Pt Warm) -Tenderness on Palpation (Lori-wound No Skin Appearance) -Ulcer Cleansing Soap and Water -Foul Odor after Cleansing No -Anesthetic Used 5% Lidocaine Gel WC - Nurse 2 - General Ulcer CM Notes Start: 07/03/24 11:51 Freq: Status: Active Protocol: Activity Type Activity Date Activity User E-sign Co-sign Detail Recorded Client Recorded Date Recorded By Document 07/03/24 12:04 RADHA [id number] 07/03/24 12:08 RADHA 07/03/24 12:04 Wound Center Nurse 2 #2 L Sup [place] -Time 12:04 -Correct Patient Yes -Correct Side, Site, Position Yes -Correct Procedure Yes -Procedure Performed Yes -Type of Procedure Debridement -Clinical Debridement Subcutaneous -Post Debridement (cm) - Length 1.1 -Post Debridement (cm) - Width 0.8 -Post Debridement (cm) - Depth 0.1 -Total Square (Post) (cm) 0.88 -Area of Debridement (cm) - Length 1.1 -Area of Debridement (cm) - Width 0.8 -Total Square (Area) (cm) 0.88 -Tunneling No -Undermining/Tunneling No -Circular Undermining No -Wound/Ulcer Outcome Not Healed -Ulcer Cleansing Rinsed/ Irrigated with Saline -Foul Odor after Cleansing No -Bioengineered Tissue No -Bleeding Controlled with Pressure -Treatment Response Procedure Tolerated Well -Offloading No -Debridement - Subq, 1st 20sq cm Yes #1 LT LAT LE -Time 12:06 -Correct Patient Yes -Correct Side, Site, Position Yes -Correct Procedure Yes -Procedure Performed Yes -Type of Procedure Debridement -Clinical Debridement Subcutaneous -Tissue Removed Subcutaneous -Post Debridement (cm) - Length 9.1 -Post Debridement (cm) - Width 5.7 -Post Debridement (cm) - Depth 0.1 -Total Square (Post) (cm) 51.87 -Area of Debridement (cm) - Length 9.1 -Area of Debridement (cm) - Width 5.7 -Total Square (Area) (cm) 51.87 -Tunneling No -Undermining/Tunneling No -Circular Undermining No -Wound/Ulcer Outcome Not Healed -Ulcer Cleansing Rinsed/ Irrigated with Saline -Foul Odor after Cleansing No -Bioengineered Tissue Yes -Type of Bioengineered Tissue Epifix Mesh -Expiration Date 12/02/28 -Product Lot Number [id number] -Percent Used 100 -Lot number of Saline Used [id number] -Bleeding Controlled with Pressure -Treatment Response Procedure Tolerated Well -Offloading No -Debridement - Subq, 1st 20sq cm No -Apply Skin Sub - 1st 25 sq cm - Legs 1 -Apply Skin Sub - each addt'l 25 sq cm 2 - Legs -Epifix Mesh (per sq cm) 11 Pain Scale: 0-10 Numeric Is Patient Pain Free? Yes - Nurse 3 - General Ulcer D/C NN Start: 07/03/24 11:51 Freq: Status: Active Protocol: Activity Type Activity Date Activity User E-sign Co-sign Detail Recorded Client Recorded Date Recorded By Document 07/03/24 12:17 DL [id number] 07/03/24 12:19 DL 07/03/24 12:17 Wound Care Center Nurse 3 #2 L Sup [place] -Ulcer Cleansing Rinsed/ Irrigated with Saline -Foul Odor after Cleansing No -Other Dressing ATB ointment -Primary Dressing Covered/Secured with Dry Gauze & Roll Gauze, Secured with Tape #1 LT LAT LE -Primary Dressing Applied Silicone Border Foam 6x6 -Other Dressing Epifix -Silicone Border Foam 6x6 1 LLE -Tubular Bandage Single Layer -Size of Tubigrip Used Size D -Size D ($) 1 Treatment Response Procedure Tolerated Well Pain Scale: 0-10 Numeric Is Patient Pain Free? Yes - Visit Discharge Discharge Condition Stable Ambulatory Status Ambulatory, Walker Transportation Private Auto Facility Type Home Health Orders Sent Yes Assessment/Plan Assessment/Plan (1) Type 2 diabetes mellitus with foot ulcer: CODE(S): E11.621 - Type 2 diabetes mellitus with foot ulcer; L97.509 - Non-pressure chronic ulcer of other part of unspecified foot with unspecified severity QUALIFIERS: Diabetes mellitus detention insulin use: with termite control servicer use Qualified Code(s): E11.621 - Type 2 diabetes mellitus with foot ulcer; L97.509 - Non-pressure chronic ulcer of other part of unspecified foot with unspecified severity; Z79.4 - superintendent terminal (current) use of insulin PLAN: Patient was examined and evaluated. All findings were discussed with the patient. All questions were answered to the patient's satisfaction. Excisional debridement down to including subcutaneous tissue with a number 5 mm dermal curette to the left superior full-thickness wound done without incident. Predebridement measurement was 1.0 x 0.7 x 0.1 cm. Postdebridement measurement is 1.1 x 0.8 x 0.1 cm. Excisional debridement down to including subcutaneous tissue with a number 5 mm dermal curette to the left inferior full-thickness wound done without incident. Predebridement measurement was 8.9 x 5.5 x 0.1 cm. Postdebridement measurement is 9.1 x 5.7 x 0.1 cm. EpiFix 4.0 x 4.5 cm was applied to the left full-thickness ulceration with 100% use. First application. The graft site was free and clear of any infection. The wound/skin graft substitute was dressed with nonadherent bandage secured in place with Steri-Strips followed by bolster dressing as well as a double layer Tubigrip. Educated the patient continue strict blood sugar control. Also educated patient to continue smoking sensation. Patient showed understanding of this will do his best to quit smoking. The patient's bilateral lower extremity vascular studies show evidence of dorsalis pedis and posterior tibial artery pulses to be triphasic in nature. ABIs to the right lower extremity 1.15, to the left lower extremity are 1.12. Patient shows great healing potential to the bilateral lower extremity. No plan for vascular surgery consultation referral at this time. Follow-up at the wound care center with Dr. Jones in 1 week. 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
--- NOTE | 2024-07-04 10:03 | WC ---
PHOTO 07/03/24 LEFT LATERAL LE
--- NOTE | 2024-07-04 10:06 | WC ---
PHOTO 07/03/24 LEFT SUP JAMES
[2024-07-10 11:15] VITALS: BP 149/90; PULSE 109; RESP 18; TEMP 36.8; BMI 26.6
--- NOTE | 2024-07-10 13:13 | PCM.WC.PN ---
History of Present Illness Date of Service: 07/03/24 Chief Complaint: Full-thickness laceration left leg History of Wound: Full-thickness laceration left leg Progress of Wound: Stable full-thickness wound left leg Subjective Subjective Mr. Avalos is a 63-year-old diabetic male presenting to wound care center today for follow-up evaluation of full-thickness wound secondary to trauma to the left lower extremity. Patient has left the left lower extremity dressing clean dry and intact. He still mitts to smoking. He admits his pain is improved. He denies trauma. Denies constitutional symptoms. No other pedal complaints at this time. Objective Data Objective Data Vital Signs: Vital Signs Temp Pulse Resp BP O2 Del Method 98.2 F 109 H 18 149/90 H Room Air 07/10/24 11:15 07/10/24 11:15 07/10/24 11:15 07/10/24 11:15 07/10/24 11:15 Oxygen Delivery Method Room Air Weight: 81.647 kg Body Mass Index (BMI) 26.6 Physical Exam Narrative Vascular: Audible Doppler sounds, DP is biphasic, PT is monophasic. Skin temperature gradient is warm to cool from proximal ankles to distal digits left lower extremity. CFT is brisk. No ecchymosis. Neurological: Light touch intact. Patient does respond to painful stimuli. Dermatological: Full-thickness wound to the superior aspect of the left lower extremity measuring 1.2 x 0.3 x 0.1 cm. Wound is stable with no sign of infection. Full-thickness wound to the left lower leg secondary to trauma, wound measurement is 9.8 x 5.6 x 0.1 cm. No sign of infection. Excisional debridement down to including subcutaneous tissue with a number 5 mm dermal curette to the left superior full-thickness wound done without incident. Predebridement measurement was sanguinous crust. Postdebridement measurement is 1.2 x 0.3 x 0.1 cm. Excisional debridement down to including subcutaneous tissue with a number 5 mm dermal curette to the left inferior full-thickness wound done without incident. Predebridement measurement was 9.5 x 5.4 x 0.1 cm. Postdebridement measurement is 9.8 x 5.6 x 0.1 cm. EpiFix 4.0 x 4.5 cm was applied to the left full-thickness ulceration with 100% use. Second application. The graft site was free and clear of any infection. The wound/skin graft substitute was dressed with nonadherent bandage secured in place with Steri-Strips followed by bolster dressing as well as a double layer Tubigrip. Musculoskeletal: Mild pain on palpation to both wounds left lower extremity. No pain with calf compression bilateral. Debridement Note Debridement Note Debridement Free Text: Excisional debridement down to including subcutaneous tissue with a number 5 mm dermal curette to the left superior full-thickness wound done without incident. Predebridement measurement was sanguinous crust. Postdebridement measurement is 1.2 x 0.3 x 0.1 cm. Excisional debridement down to including subcutaneous tissue with a number 5 mm dermal curette to the left inferior full-thickness wound done without incident. Predebridement measurement was 9.5 x 5.4 x 0.1 cm. Postdebridement measurement is 9.8 x 5.6 x 0.1 cm. EpiFix 4.0 x 4.5 cm was applied to the left full-thickness ulceration with 100% use. Second application. The graft site was free and clear of any infection. The wound/skin graft substitute was dressed with nonadherent bandage secured in place with Steri-Strips followed by bolster dressing as well as a double layer Tubigrip. Post-Debridement Measurements and Additional Note: Post-Debridement Measurements/Treatment - Nurse 1 - General Ulcer Assessment Start: 07/03/24 11:51 Freq: Status: Active Protocol: .LOWEXT Activity Type Activity Date Activity User E-sign Co-sign Detail Recorded Client Recorded Date Recorded By Document 07/03/24 11:51 DL [id number] 07/03/24 11:54 DL Document 07/10/24 11:15 MT [id number] 07/10/24 11:24 MT 07/03/24 07/10/24 11:51 11:15 - Today's Visit Information Type of service Follow-up Visit Follow-up Visit (Physician/PHLEBOTOMIST MEDICAL LAB ASSISTANT (Physician/PHLEBOTOMIST MEDICAL LAB ASSISTANT ) ) Arrival Mode Ambulatory, Walker Walker Transfer Assistance None Accompanied by self Patient Identification Verified (Name & Yes Yes ) Patient Requires Transmission-Based No Precautions Safety Precautions Fall Prevention Height and Weight Body Mass Index (BMI) 26.6 26.6 BMI Classification Overweight Overweight Vital Signs Temperature (97.8 F-99.1 F) 96.5 F L 98.2 F Temperature Source Temporal Temporal Pulse Rate (60-100) 95 109 H Pulse Location Monitor Monitor Respiratory Rate (12-18) 18 18 Respiratory rate source Observation Observation Oxygen Delivery Method Room Air Blood Pressure (90/60-120/80) 156/81 H 149/90 H Blood Pressure Mean (mm Hg) 106 109 Source Monitor Position Sitting Blood Pressure Location Left Arm History Since Last Visit- (Skip if this is Patient's initial visit) Have you changed medications since your No last visit? Any new allergies or adverse reactions No Had a fall/change in ADL's that may No increase risk of falls Signs or symptoms of abuse and/or No neglect since last visit Have you been in the hospital since your No last visit? Has dressing in place as prescribed Yes Yes Has compression in place as prescribed Yes Yes Has offloadiing in place as prescribed Yes Yes Experienced any changes in pain level or No Yes management Left Footwear Regular Shoe Regular Shoe Right Footwear Regular Shoe Regular Shoe Pain Scale: 0-10 Numeric Is Patient Pain Free? Yes Yes - Nurse 1 - General Ulcer Measurement Start: 07/03/24 11:51 Freq: Status: Active Protocol: Activity Type Activity Date Activity User E-sign Co-sign Detail Recorded Client Recorded Date Recorded By Document 07/03/24 11:51 DL [id number] 07/03/24 11:54 DL Document 07/10/24 11:15 VA [id number] 07/10/24 11:24 MT 07/03/24 07/10/24 11:51 11:15 Wound Center Nurse 1 #2 L Sup [place] -Current Size (cm) - Length 1 1.2 -Current Size (cm) - Width 0.8 1.0 -Current Size (cm) - Depth 0.1 0.1 -Total Square Cm 0.8 1.20 -Date of Last Picture (Recall this 07/10/24 field) -Photo Taken Yes Yes -Tunneling No -Undermining/Tunneling No -Circular Undermining No -Exudate Amt Medium Small -Exudate Type Serosanguineous Serosanguineous -Wound Margin Distinct, Flat & Intact Outline Attached -Granulation Amt Small (1-33%) Medium (34-66%) -Granulation Quality [place] Pale,[place] -Necrosis Amt Small (1-33%) Medium (34-66%) -Necrotic Tissue Type Adherent Slough Adherent Slough -Structure Exposed N/A -Texture (Lori-wound Skin Appearance) Scarring Assessed -Moisture (Lori-wound Skin Appearance) Dry/Scaly Assessed -Color (Lori-wound Skin Appearance) Hemosiderin Assessed Staining -Temperature (Lori-wound Skin No Abnormality No Abnormality Appearance) (Pt Warm) (Pt Warm) -Tenderness on Palpation (Lori-wound No Skin Appearance) -Ulcer Cleansing Soap and Water Soap and Water -Foul Odor after Cleansing No No -Anesthetic Used 5% Lidocaine 4% Lidocaine Gel Solution #1 LT LAT LE -Current Size (cm) - Length 9 9 -Current Size (cm) - Width 6.4 6 -Current Size (cm) - Depth 0.1 0.1 -Total Square Cm 57.6 54 -Date of Last Picture (Recall this 07/10/24 field) -Photo Taken Yes Yes -Tunneling No -Undermining/Tunneling No -Circular Undermining No -Exudate Amt Medium Medium -Exudate Type Serosanguineous Yellow/Green -Wound Margin Distinct, Flat & Intact Outline Attached -Granulation Amt Medium (34-66%) Medium (34-66%) -Granulation Quality Red Pale,[place] -Necrosis Amt Medium (34-66%) Medium (34-66%) -Necrotic Tissue Type Adherent Slough Adherent Slough -Structure Exposed N/A -Texture (Lori-wound Skin Appearance) Scarring Assessed -Moisture (Lori-wound Skin Appearance) Dry/Scaly Assessed -Color (Lori-wound Skin Appearance) Hemosiderin Assessed Staining -Temperature (Lori-wound Skin No Abnormality No Abnormality Appearance) (Pt Warm) (Pt Warm) -Tenderness on Palpation (Lori-wound No No Skin Appearance) -Ulcer Cleansing Soap and Water Not Cleansed -Foul Odor after Cleansing No No -Anesthetic Used 5% Lidocaine 5% Lidocaine Gel Gel Lower Limb Edema Present No Left Calf (cm) 30.5 Left Foot (cm) 21 WC - Nurse 2 - General Ulcer CM Notes Start: 07/03/24 11:51 Freq: Status: Active Protocol: Activity Type Activity Date Activity User E-sign Co-sign Detail Recorded Client Recorded Date Recorded By Document 07/03/24 12:04 RADHA [id number] 07/03/24 12:08 JF Document 07/10/24 11:42 [id number] 07/10/24 11:50 JF 07/03/24 07/10/24 12:04 11:42 Wound Center Nurse 2 #2 L Sup [place] -Time 12:04 11:43 -Correct Patient Yes Yes -Correct Side, Site, Position Yes Yes -Correct Procedure Yes Yes -Procedure Performed Yes Yes -Type of Procedure Debridement Debridement -Clinical Debridement Subcutaneous Subcutaneous -Tissue Removed Subcutaneous -Post Debridement (cm) - Length 1.1 1.2 -Post Debridement (cm) - Width 0.8 0.3 -Post Debridement (cm) - Depth 0.1 0.1 -Total Square (Post) (cm) 0.88 0.36 -Area of Debridement (cm) - Length 1.1 1.2 -Area of Debridement (cm) - Width 0.8 0.3 -Total Square (Area) (cm) 0.88 0.36 -Tunneling No No -Undermining/Tunneling No No -Circular Undermining No No -Wound/Ulcer Outcome Not Healed Not Healed -Ulcer Cleansing Rinsed/ Rinsed/ Irrigated with Irrigated with Saline Saline -Foul Odor after Cleansing No No -Bioengineered Tissue No No -Bleeding Controlled with Pressure Pressure -Treatment Response Procedure Procedure Tolerated Well Tolerated Well -Offloading No No -Debridement - Subq, 1st 20sq cm Yes Yes #1 LT LAT LE -Time 12:06 11:43 -Correct Patient Yes Yes -Correct Side, Site, Position Yes Yes -Correct Procedure Yes Yes -Procedure Performed Yes Yes -Type of Procedure Debridement Debridement -Clinical Debridement Subcutaneous Subcutaneous -Tissue Removed Subcutaneous Subcutaneous -Post Debridement (cm) - Length 9.1 9.8 -Post Debridement (cm) - Width 5.7 5.6 -Post Debridement (cm) - Depth 0.1 0.1 -Total Square (Post) (cm) 51.87 54.88 -Area of Debridement (cm) - Length 9.1 9.8 -Area of Debridement (cm) - Width 5.7 5.6 -Total Square (Area) (cm) 51.87 54.88 -Tunneling No No -Undermining/Tunneling No No -Circular Undermining No No -Wound/Ulcer Outcome Not Healed Not Healed -Ulcer Cleansing Rinsed/ Rinsed/ Irrigated with Irrigated with Saline Saline -Foul Odor after Cleansing No No -Bioengineered Tissue Yes Yes -Type of Bioengineered Tissue Epifix Mesh Epifix Mesh -Expiration Date 12/02/28 12/02/28 -Product Lot Number [id number] -Percent Used 100 100 -Lot number of Saline Used [id number] -Bleeding Controlled with Pressure Pressure -Treatment Response Procedure Procedure Tolerated Well Tolerated Well -Offloading No No -Debridement - Subq, 1st 20sq cm No No -Apply Skin Sub - 1st 25 sq cm - Legs 1 1 -Apply Skin Sub - each addt'l 25 sq cm 2 2 - Legs -Epifix Mesh (per sq cm) 11 11 Pain Scale: 0-10 Numeric Is Patient Pain Free? Yes Yes - Nurse 3 - General Ulcer D/C NN Start: 07/03/24 11:51 Freq: Status: Active Protocol: Activity Type Activity Date Activity User E-sign Co-sign Detail Recorded Client Recorded Date Recorded By Document 07/03/24 12:17 DL [id number] 07/03/24 12:19 DL Document 07/10/24 11:57 VA [id number] 07/10/24 11:58 MT 07/03/24 07/10/24 12:17 11:57 Wound Care Center Nurse 3 #2 L Sup [place] -Ulcer Cleansing Rinsed/ Irrigated with Saline -Foul Odor after Cleansing No -Other Dressing ATB ointment abd -Primary Dressing Covered/Secured with Dry Gauze & Dry Gauze & Roll Gauze, Roll Gauze, Secured with Secured with Tape Tape #1 LT LAT LE -Primary Dressing Applied Silicone Border Foam 6x6 -Other Dressing Epifix abd -Primary Dressing Covered/Secured with Dry Gauze & Roll Gauze, Secured with Tape -Silicone Border Foam 6x6 1 LLE -Tubular Bandage Single Layer -Size of Tubigrip Used Size D -Size D ($) 1 Treatment Response Procedure Tolerated Well Pain Scale: 0-10 Numeric Is Patient Pain Free? Yes Yes - Visit Discharge Discharge Condition Stable Stable Ambulatory Status Ambulatory, Ambulatory Walker Transportation Private Auto Private Auto Medication Reconcilliation completed & No provided to patient/care provider Clinical Summary of Care Provided Yes Facility Type Home Health Orders Sent Yes Assessment/Plan Assessment/Plan (1) Type 2 diabetes mellitus with foot ulcer: CODE(S): E11.621 - Type 2 diabetes mellitus with foot ulcer; L97.509 - Non-pressure chronic ulcer of other part of unspecified foot with unspecified severity QUALIFIERS: Diabetes mellitus [employer] insulin use: with [employer] use Qualified Code(s): E11.621 - Type 2 diabetes mellitus with foot ulcer; L97.509 - Non-pressure chronic ulcer of other part of unspecified foot with unspecified severity; Z79.4 - retirement (current) use of insulin PLAN: Patient was examined and evaluated. All findings were discussed with the patient. All questions were answered to the patient's satisfaction. Excisional debridement down to including subcutaneous tissue with a number 5 mm dermal curette to the left superior full-thickness wound done without incident. Predebridement measurement was sanguinous crust. Postdebridement measurement is 1.2 x 0.3 x 0.1 cm. Excisional debridement down to including subcutaneous tissue with a number 5 mm dermal curette to the left inferior full-thickness wound done without incident. Predebridement measurement was 9.5 x 5.4 x 0.1 cm. Postdebridement measurement is 9.8 x 5.6 x 0.1 cm. EpiFix 4.0 x 4.5 cm was applied to the left full-thickness ulceration with 100% use. Second application. The graft site was free and clear of any infection. The wound/skin graft substitute was dressed with nonadherent bandage secured in place with Steri-Strips followed by bolster dressing as well as a double layer Tubigrip. Educated the patient continue strict blood sugar control. Also educated patient to continue smoking sensation. Patient showed understanding of this will do his best to quit smoking. Follow-up at the wound care center with Dr. Jones in 1 week. 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
--- NOTE | 2024-07-11 10:45 | WC ---
PHOTO 07/10/24 LEFT LATERAL LE
--- NOTE | 2024-07-11 10:49 | WC ---
PHOTO 07/10/24 LEFT LATERAL LOWER EXT
--- NOTE | 2024-07-11 10:52 | WC ---
PHOTO LEFT SUP JAMES 07/10/24
[2024-07-17 10:32] VITALS: BP 202/99; PULSE 121; RESP 18; TEMP 36.8; BMI 26.6
--- NOTE | 2024-07-17 13:45 | PCM.WC.PN ---
History of Present Illness Date of Service: 07/17/24 Chief Complaint: Full-thickness laceration left leg History of Wound: Full-thickness laceration left leg Progress of Wound: Stable full-thickness wound left leg Subjective Subjective Mr. Avalos is a 63-year-old diabetic male presenting to wound care center today for follow-up evaluation of full-thickness wound secondary to trauma to the left lower extremity. Patient has left the left lower extremity dressing clean dry and intact. He still mitts to smoking. He admits his pain is improved. He denies trauma. Denies constitutional symptoms. No other pedal complaints at this time. Objective Data Objective Data Vital Signs: Vital Signs Temp Pulse Resp BP O2 Del Method 98.3 F 121 H 18 202/99 H Room Air 07/17/24 10:32 07/17/24 10:32 07/17/24 10:32 07/17/24 10:32 07/10/24 11:15 Oxygen Delivery Method Room Air Weight: 81.647 kg Body Mass Index (BMI) 26.6 Physical Exam Narrative Vascular: Audible Doppler sounds, DP is biphasic, PT is monophasic. Skin temperature gradient is warm to cool from proximal ankles to distal digits left lower extremity. CFT is brisk. No ecchymosis. Neurological: Light touch intact. Patient does respond to painful stimuli. Dermatological: Full-thickness wound to the superior aspect of the left lower extremity is now healed. Full-thickness wound to the left lower leg secondary to trauma, wound measurement is 8.7 x 4.9 x 0.1 cm. No sign of infection. Excisional debridement down to including subcutaneous tissue with a number 5 mm dermal curette to the left inferior full-thickness wound done without incident. Predebridement measurement was 8.5 x 4.7 x 0.1 cm. Postdebridement measurement is 8.7 x 4.9 x 0.1 cm. EpiFix 4.0 x 4.5 cm was applied to the left full-thickness ulceration with 100% use. Third application. The graft site was free and clear of any infection. The wound/skin graft substitute was dressed with nonadherent bandage secured in place with Steri-Strips followed by bolster dressing as well as a double layer Tubigrip. Musculoskeletal: Mild pain on palpation to both wounds left lower extremity. No pain with calf compression bilateral. Debridement Note Debridement Note Debridement Free Text: Excisional debridement down to including subcutaneous tissue with a number 5 mm dermal curette to the left inferior full-thickness wound done without incident. Predebridement measurement was 8.5 x 4.7 x 0.1 cm. Postdebridement measurement is 8.7 x 4.9 x 0.1 cm. EpiFix 4.0 x 4.5 cm was applied to the left full-thickness ulceration with 100% use. Third application. The graft site was free and clear of any infection. The wound/skin graft substitute was dressed with nonadherent bandage secured in place with Steri-Strips followed by bolster dressing as well as a double layer Tubigrip. Post-Debridement Measurements and Additional Note: Post-Debridement Measurements/Treatment - Nurse 1 - General Ulcer Assessment Start: 07/03/24 11:51 Freq: Status: Active Protocol: [email or web address] Activity Type Activity Date Activity User E-sign Co-sign Detail Recorded Client Recorded Date Recorded By Document 07/03/24 11:51 DL [id number] 07/03/24 11:54 DL Document 07/10/24 11:15 MT [id number] 07/10/24 11:24 MT Document 07/17/24 10:32 DL [id number] 07/17/24 10:41 DL 07/03/24 07/10/24 07/17/24 11:51 11:15 10:32 - Today's Visit Information Type of service Follow-up Visit Follow-up Visit Follow-up Visit (Physician/SCENIC ARTS SUPERVISOR (Physician/SCENIC ARTS SUPERVISOR (Physician/SCENIC ARTS SUPERVISOR ) ) ) Arrival Mode Ambulatory, Walker Ambulatory, Walker Walker Transfer Assistance None None Accompanied by self Patient Identification Verified (Name & Yes Yes Yes ) Patient Requires Transmission-Based No No Precautions Safety Precautions Fall Prevention Height and Weight Body Mass Index (BMI) 26.6 26.6 26.6 BMI Classification Overweight Overweight Overweight Vital Signs Temperature (97.8 F-99.1 F) 96.5 F L 98.2 F 98.3 F Temperature Source Temporal Temporal Temporal Pulse Rate (60-100) 95 109 H 121 H Pulse Location Monitor Monitor Monitor Respiratory Rate (12-18) 18 18 18 Respiratory rate source Observation Observation Observation Oxygen Delivery Method Room Air Blood Pressure (90/60-120/80) 156/81 H 149/90 H 202/99 H Blood Pressure Mean (mm Hg) 106 109 133 Source Monitor Monitor Position Sitting Blood Pressure Location Left Arm History Since Last Visit- (Skip if this is Patient's initial visit) Have you changed medications since your No No last visit? Any new allergies or adverse reactions No No Had a fall/change in ADL's that may No No increase risk of falls Signs or symptoms of abuse and/or No No neglect since last visit Have you been in the hospital since your No No last visit? Has dressing in place as prescribed Yes Yes Yes Has compression in place as prescribed Yes Yes Yes Has offloadiing in place as prescribed Yes Yes N/A Experienced any changes in pain level or No Yes Yes management Left Footwear Regular Shoe Regular Shoe Right Footwear Regular Shoe Regular Shoe Pain Scale: 0-10 Numeric Is Patient Pain Free? Yes Yes Yes WC - Nurse 1 - General Ulcer Measurement Start: 07/03/24 11:51 Freq: Status: Active Protocol: Activity Type Activity Date Activity User E-sign Co-sign Detail Recorded Client Recorded Date Recorded By Document 07/03/24 11:51 DL [id number] 07/03/24 11:54 DL Document 07/10/24 11:15 MT [id number] 07/10/24 11:24 MT Document 07/17/24 10:32 DL [id number] 07/17/24 10:41 DL 07/03/24 07/10/24 07/17/24 11:51 11:15 10:32 Wound Center Nurse 1 #2 L Sup [place] -Current Size (cm) - Length 1 1.2 0.2 -Current Size (cm) - Width 0.8 1.0 0.2 -Current Size (cm) - Depth 0.1 0.1 0.1 -Total Square Cm 0.8 1.20 0.04 -Date of Last Picture (Recall this 07/10/24 field) -Photo Taken Yes Yes -Tunneling No -Undermining/Tunneling No -Circular Undermining No -Exudate Amt Medium Small Small -Exudate Type Serosanguineous Serosanguineous -Wound Margin Distinct, Flat & Intact Distinct, Outline Outline Attached Attached -Granulation Amt Small (1-33%) Medium (34-66%) Small (1-33%) -Granulation Quality [employer] Pale,[employer] -Necrosis Amt Small (1-33%) Medium (34-66%) Small (1-33%) -Necrotic Tissue Type Adherent Slough Adherent Slough Adherent Slough -Structure Exposed N/A N/A -Texture (Lori-wound Skin Appearance) Scarring Assessed Scarring -Moisture (Lori-wound Skin Appearance) Dry/Scaly Assessed No Abnormality -Color (Lori-wound Skin Appearance) Hemosiderin Assessed Hemosiderin Staining Staining -Temperature (Lori-wound Skin No Abnormality No Abnormality No Abnormality Appearance) (Pt Warm) (Pt Warm) (Pt Warm) -Tenderness on Palpation (Lroi-wound No No Skin Appearance) -Ulcer Cleansing Soap and Water Soap and Water Soap and Water -Foul Odor after Cleansing No No No -Anesthetic Used 5% Lidocaine 4% Lidocaine 5% Lidocaine Gel Solution Gel #1 LT LAT LE -Current Size (cm) - Length 9 9 8.7 -Current Size (cm) - Width 6.4 6 5 -Current Size (cm) - Depth 0.1 0.1 0.1 -Total Square Cm 57.6 54 43.5 -Date of Last Picture (Recall this 07/10/24 field) -Photo Taken Yes Yes -Tunneling No -Undermining/Tunneling No -Circular Undermining No -Exudate Amt Medium Medium Medium -Exudate Type Serosanguineous Yellow/Green Serosanguineous -Wound Margin Distinct, Flat & Intact Distinct, Outline Outline Attached Attached -Granulation Amt Medium (34-66%) Medium (34-66%) Medium (34-66%) -Granulation Quality Red Pale,[employer] Red -Necrosis Amt Medium (34-66%) Medium (34-66%) Medium (34-66%) -Necrotic Tissue Type Adherent Slough Adherent Slough Adherent Slough -Structure Exposed N/A N/A -Texture (Lori-wound Skin Appearance) Scarring Assessed Scarring -Moisture (Lori-wound Skin Appearance) Dry/Scaly Assessed Maceration -Color (Lori-wound Skin Appearance) Hemosiderin Assessed Hemosiderin Staining Staining -Temperature (Lori-wound Skin No Abnormality No Abnormality No Abnormality Appearance) (Pt Warm) (Pt Warm) (Pt Warm) -Tenderness on Palpation (Lori-wound No No No Skin Appearance) -Ulcer Cleansing Soap and Water Not Cleansed Soap and Water -Foul Odor after Cleansing No No No -Anesthetic Used 5% Lidocaine 5% Lidocaine 4% Lidocaine Gel Gel Solution Lower Limb Edema Present No Left Calf (cm) 30.5 28 Left Ankle (cm) 21 Left Foot (cm) 21 - Nurse 2 - General Ulcer CM Notes Start: 07/03/24 11:51 Freq: Status: Active Protocol: Activity Type Activity Date Activity User E-sign Co-sign Detail Recorded Client Recorded Date Recorded By Document 07/03/24 12:04 [id number] 07/03/24 12:08 Document 07/10/24 11:42 [id number] 07/10/24 11:50 Document 07/17/24 10:57 [id number] 07/17/24 11:01 07/03/24 07/10/24 07/17/24 12:04 11:42 10:57 Wound Center Nurse 2 #2 L Sup [place] -Time 12:04 11:43 -Correct Patient Yes Yes Yes -Correct Side, Site, Position Yes Yes No -Correct Procedure Yes Yes No -Procedure Performed Yes Yes No -Type of Procedure Debridement Debridement -Clinical Debridement Subcutaneous Subcutaneous -Tissue Removed Subcutaneous -Post Debridement (cm) - Length 1.1 1.2 0 -Post Debridement (cm) - Width 0.8 0.3 0 -Post Debridement (cm) - Depth 0.1 0.1 0 -Total Square (Post) (cm) 0.88 0.36 0 -Area of Debridement (cm) - Length 1.1 1.2 0 -Area of Debridement (cm) - Width 0.8 0.3 0 -Total Square (Area) (cm) 0.88 0.36 0 -Tunneling No No -Undermining/Tunneling No No -Circular Undermining No No -Wound/Ulcer Outcome Not Healed Not Healed Healed- Epithelialized -Ulcer Cleansing Rinsed/ Rinsed/ Irrigated with Irrigated with Saline Saline -Foul Odor after Cleansing No No -Bioengineered Tissue No No -Bleeding Controlled with Pressure Pressure -Treatment Response Procedure Procedure Tolerated Well Tolerated Well -Offloading No No -Debridement - Subq, 1st 20sq cm Yes Yes #1 LT LAT LE -Time 12:06 11:43 10:57 -Correct Patient Yes Yes Yes -Correct Side, Site, Position Yes Yes Yes -Correct Procedure Yes Yes Yes -Procedure Performed Yes Yes Yes -Type of Procedure Debridement Debridement Debridement -Clinical Debridement Subcutaneous Subcutaneous Subcutaneous -Tissue Removed Subcutaneous Subcutaneous Subcutaneous -Post Debridement (cm) - Length 9.1 9.8 8.7 -Post Debridement (cm) - Width 5.7 5.6 4.9 -Post Debridement (cm) - Depth 0.1 0.1 0.1 -Total Square (Post) (cm) 51.87 54.88 42.63 -Area of Debridement (cm) - Length 9.1 9.8 8.7 -Area of Debridement (cm) - Width 5.7 5.6 4.9 -Total Square (Area) (cm) 51.87 54.88 42.63 -Tunneling No No No -Undermining/Tunneling No No No -Circular Undermining No No No -Wound/Ulcer Outcome Not Healed Not Healed Not Healed -Ulcer Cleansing Rinsed/ Rinsed/ Rinsed/ Irrigated with Irrigated with Irrigated with Saline Saline Saline -Foul Odor after Cleansing No No No -Bioengineered Tissue Yes Yes Yes -Type of Bioengineered Tissue Epifix Mesh Epifix Mesh Epifix Mesh -Expiration Date 12/02/28 12/02/28 12/02/28 -Product Lot Number [id number] -Percent Used 100 100 100 -Lot number of Saline Used [id number] -Bleeding Controlled with Pressure Pressure Pressure -Treatment Response Procedure Procedure Procedure Tolerated Well Tolerated Well Tolerated Well -Offloading No No No -Debridement - Subq, 1st 20sq cm No No No -Apply Skin Sub - 1st 25 sq cm - Legs 1 1 1 -Apply Skin Sub - each addt'l 25 sq cm 2 2 2 - Legs -Epifix Mesh Application 1-4 (per sq 11 11 cm) Pain Scale: 0-10 Numeric Is Patient Pain Free? Yes Yes Yes WC - Nurse 3 - General Ulcer D/C NN Start: 07/03/24 11:51 Freq: Status: Active Protocol: Activity Type Activity Date Activity User E-sign Co-sign Detail Recorded Client Recorded Date Recorded By Document 07/03/24 12:17 DL [id number] 07/03/24 12:19 DL Document 07/10/24 11:57 MT [id number] 07/10/24 11:58 MT Document 07/17/24 11:22 GM [id number] 07/17/24 11:22 GM Edit Result 07/17/24 11:22 GM (1) [id number] 07/17/24 11:28 GM (1) Notes: => RECHECKED BLOOD PRESSURE AND HR, 182/98 91 => PATIENT ONLY TOOK HALF HIS BP MEDS THIS MORNING AND STATES HE WILL TAKE THE REST WHEN HE GETS HOME 07/03/24 07/10/24 07/17/24 12:17 11:57 11:22 Wound Care Center Nurse 3 #2 L Sup [place] -Ulcer Cleansing Rinsed/ Irrigated with Saline -Foul Odor after Cleansing No -Other Dressing ATB ointment abd -Primary Dressing Covered/Secured with Dry Gauze & Dry Gauze & Roll Gauze, Roll Gauze, Secured with Secured with Tape Tape #1 LT LAT LE -Ulcer Cleansing Not Cleansed -Foul Odor after Cleansing No -Primary Dressing Applied Silicone Border Foam 6x6 -Other Dressing Epifix abd -Primary Dressing Covered/Secured with Dry Gauze & Dry Gauze & Roll Gauze, Roll Gauze, Secured with Secured with Tape Tape,Other -Other Covering abd pad -Silicone Border Foam 6x6 1 LLE -Lotion applied to leg before No compression wrap -Tubular Bandage Single Layer Double Layer -Size of Tubigrip Used Size D Size F -Size D ($) 1 -Size F ($) 2 Treatment Response Procedure Tolerated Well Pain Scale: 0-10 Numeric Is Patient Pain Free? Yes Yes Yes WC - Visit Discharge Discharge Condition Stable Stable Stable Ambulatory Status Ambulatory, Ambulatory Ambulatory Walker Transportation Private Auto Private Auto Private Auto Medication Reconcilliation completed & No provided to patient/care provider Clinical Summary of Care Provided Yes Yes Notes: RECHECKED BLOOD PRESSURE AND HR, 182/98 91 PATIENT ONLY TOOK HALF HIS BP MEDS THIS MORNING AND STATES HE WILL TAKE THE REST WHEN HE GETS HOME Facility Type Home Health Orders Sent Yes Assessment/Plan Assessment/Plan (1) Type 2 diabetes mellitus with foot ulcer: CODE(S): E11.621 - Type 2 diabetes mellitus with foot ulcer; L97.509 - Non-pressure chronic ulcer of other part of unspecified foot with unspecified severity QUALIFIERS: Diabetes mellitus care home insulin use: with assistant terminal manager use Qualified Code(s): E11.621 - Type 2 diabetes mellitus with foot ulcer; L97.509 - Non-pressure chronic ulcer of other part of unspecified foot with unspecified severity; Z79.4 - terminal block assembler (current) use of insulin PLAN: Patient was examined and evaluated. All findings were discussed with the patient. All questions were answered to the patient's satisfaction. Excisional debridement down to including subcutaneous tissue with a number 5 mm dermal curette to the left inferior full-thickness wound done without incident. Predebridement measurement was 8.5 x 4.7 x 0.1 cm. Postdebridement measurement is 8.7 x 4.9 x 0.1 cm. EpiFix 4.0 x 4.5 cm was applied to the left full-thickness ulceration with 100% use. Third application. The graft site was free and clear of any infection. The wound/skin graft substitute was dressed with nonadherent bandage secured in place with Steri-Strips followed by bolster dressing as well as a double layer Tubigrip. Educated the patient continue strict blood sugar control. Also educated patient to continue smoking sensation. Patient showed understanding of this will do his best to quit smoking. Follow-up at the wound care center with Dr. Jones in 1 week. 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
[2024-07-24 10:45] VITALS: BP 167/82; PULSE 108; RESP 18; BMI 26.6
--- NOTE | 2024-07-24 11:39 | PN.PCM_ITS ---
History of Present Illness Date of Service: 07/24/24 Chief Complaint: Full-thickness laceration left leg History of Wound: Full-thickness laceration left leg Progress of Wound: Stable full-thickness wound left leg Subjective Subjective Mr. Avalos is a 63-year-old diabetic male presenting to wound care center today for follow-up evaluation of full-thickness wound secondary to trauma to the left lower extremity. Patient states that he had his EMG and NCV studies today at the hospital. In regards to his full-thickness wound to left leg his left dressing clean dry and intact. He does continue to smoke. His blood sugars well-controlled. Denies any new onset of trauma. Denies constitutional symptoms. No other pedal complaints at this time. Objective Data Objective Data Vital Signs: Vital Signs Temp Pulse Resp BP O2 Del Method 98.3 F 108 H 18 167/82 H Room Air 07/17/24 10:32 07/24/24 10:45 07/24/24 10:45 07/24/24 10:45 07/10/24 11:15 Oxygen Delivery Method Room Air Weight: 81.647 kg Body Mass Index (BMI) 26.6 Physical Exam Narrative Vascular: Audible Doppler sounds, DP is biphasic, PT is monophasic. Skin temperature gradient is warm to cool from proximal ankles to distal digits left lower extremity. CFT is brisk. No ecchymosis. Neurological: Light touch intact. Patient does respond to painful stimuli. Dermatological: Full-thickness wound to the superior aspect of the left lower extremity is now healed. Full-thickness wound to the left lower leg secondary to trauma, wound measurement is 8.9 x 5.0 x 0.1 cm. There is also evidence of mult iple skin islands that have healed within the wound itself. No sign of infection. Excisional debridement down to including subcutaneous tissue with a number 5 mm dermal curette to the left inferior full-thickness wound done without incident. Predebridement measurement was 8.7 x 4.8 x 0.1 cm. Postdebridement measurement is 8.9 x 5.0 x 0.1 cm. EpiFix 4.0 x 4.5 cm was applied to the left full-thickness ulceration with 100% use. Fourth application. The graft site was free and clear of any infection. The wound/skin graft substitute was dressed with nonadherent bandage secured in place with Steri-Strips followed by bolster dressing as well as a double layer Tubigrip. Musculoskeletal: Mild pain on palpation to both wounds left lower extremity. No pain with calf compression bilateral. Debridement Note Debridement Note Debridement Free Text: Excisional debridement down to including subcutaneous tissue with a number 5 mm dermal curette to the left inferior full-thickness wound done without incident. Predebridement measurement was 8.7 x 4.8 x 0.1 cm. Postdebridement measurement is 8.9 x 5.0 x 0.1 cm. EpiFix 4.0 x 4.5 cm was applied to the left full-thickness ulceration with 100% use. Fourth application. The graft site was free and clear of any infection. The wound/skin graft substitute was dressed with nonadherent bandage secured in place with Steri-Strips followed by bolster dressing as well as a double layer Tubigrip. Post-Debridement Measurements and Additional Note: Post-Debridement Measurements/Treatment - Nurse 1 - General Ulcer Assessment Start: 07/03/24 11:51 Freq: Status: Active Protocol: VIGNESH Activity Type Activity Date Activity User E-sign Co-sign Detail Recorded Client Recorded Date Recorded By Document 07/03/24 11:51 DL [id number] 07/03/24 11:54 DL Document 07/10/24 11:15 MT [id number] 07/10/24 11:24 MT Document 07/17/24 10:32 DL [id number] 07/17/24 10:41 DL Document 07/24/24 10:45 CP [id number] 07/24/24 10:47 CP 07/03/24 07/10/24 07/17/24 11:51 11:15 10:32 - Today's Visit Information Type of service Follow-up Visit Follow-up Visit Follow-up Visit (Physician/OFFICE SUPPORT CLERK (Physician/OFFICE SUPPORT CLERK (Physician/OFFICE SUPPORT CLERK ) ) ) Arrival Mode Ambulatory, Walker Ambulatory, Walker Walker Transfer Assistance None None Accompanied by self Patient Identification Verified (Name & Yes Yes Yes ) Patient Requires Transmission-Based No No Precautions Safety Precautions Fall Prevention Height and Weight Body Mass Index (BMI) 26.6 26.6 26.6 BMI Classification Overweight Overweight Overweight Vital Signs Temperature (97.8 F-99.1 F) 96.5 F L 98.2 F 98.3 F Temperature Source Temporal Temporal Temporal Pulse Rate (60-100) 95 109 H 121 H Pulse Location Monitor Monitor Monitor Respiratory Rate (12-18) 18 18 18 Respiratory rate source Observation Observation Observation Oxygen Delivery Method Room Air Blood Pressure (90/60-120/80) 156/81 H 149/90 H 202/99 H Blood Pressure Mean (mm Hg) 106 109 133 Source Monitor Monitor Position Sitting Blood Pressure Location Left Arm History Since Last Visit- (Skip if this is Patient's initial visit) Have you changed medications since your No No last visit? Any new allergies or adverse reactions No No Had a fall/change in ADL's that may No No increase risk of falls Signs or symptoms of abuse and/or No No neglect since last visit Have you been in the hospital since your No No last visit? Has dressing in place as prescribed Yes Yes Yes Has compression in place as prescribed Yes Yes Yes Has offloadiing in place as prescribed Yes Yes N/A Experienced any changes in pain level or No Yes Yes management Left Footwear Regular Shoe Regular Shoe Right Footwear Regular Shoe Regular Shoe Pain Scale: 0-10 Numeric Is Patient Pain Free? Yes Yes Yes 07/24/24 10:45 WC - Today's Visit Information Type of service Follow-up Visit (Physician/OFFICE SUPPORT CLERK ) Arrival Mode Ambulatory, Walker Transfer Assistance Accompanied by Patient Identification Verified (Name & Yes ) Patient Requires Transmission-Based Precautions Safety Precautions Height and Weight Body Mass Index (BMI) 26.6 BMI Classification Overweight Vital Signs Temperature (97.8 F-99.1 F) Temperature Source Pulse Rate (60-100) 108 H Pulse Location Monitor Respiratory Rate (12-18) 18 Respiratory rate source Observation Oxygen Delivery Method Blood Pressure (90/60-120/80) 167/82 H Blood Pressure Mean (mm Hg) 110 Source Monitor Position Sitting Blood Pressure Location Left Arm History Since Last Visit- (Skip if this is Patient's initial visit) Have you changed medications since your No last visit? Any new allergies or adverse reactions No Had a fall/change in ADL's that may No increase risk of falls Signs or symptoms of abuse and/or No neglect since last visit Have you been in the hospital since your No last visit? Has dressing in place as prescribed Yes Has compression in place as prescribed No Has offloadiing in place as prescribed N/A Experienced any changes in pain level or No management Left Footwear Right Footwear Pain Scale: 0-10 Numeric Is Patient Pain Free? Yes WC - Nurse 1 - General Ulcer Measurement Start: 07/03/24 11:51 Freq: Status: Active Protocol: Activity Type Activity Date Activity User E-sign Co-sign Detail Recorded Client Recorded Date Recorded By Document 07/03/24 11:51 DL [id number] 07/03/24 11:54 DL Document 07/10/24 11:15 MT [id number] 07/10/24 11:24 MT Document 07/17/24 10:32 DL [id number] 07/17/24 10:41 DL Document 07/24/24 10:45 CP [id number] 07/24/24 10:47 CP 07/03/24 07/10/24 07/17/24 11:51 11:15 10:32 Wound Center Nurse 1 #2 L Sup [place] -Current Size (cm) - Length 1 1.2 0.2 -Current Size (cm) - Width 0.8 1.0 0.2 -Current Size (cm) - Depth 0.1 0.1 0.1 -Total Square Cm 0.8 1.20 0.04 -Date of Last Picture (Recall this 07/10/24 field) -Photo Taken Yes Yes -Tunneling No -Undermining/Tunneling No -Circular Undermining No -Exudate Amt Medium Small Small -Exudate Type Serosanguineous Serosanguineous -Wound Margin Distinct, Flat & Intact Distinct, Outline Outline Attached Attached -Granulation Amt Small (1-33%) Medium (34-66%) Small (1-33%) -Granulation Quality [place] Pale,[place] -Necrosis Amt Small (1-33%) Medium (34-66%) Small (1-33%) -Necrotic Tissue Type Adherent Slough Adherent Slough Adherent Slough -Structure Exposed N/A N/A -Texture (Lori-wound Skin Appearance) Scarring Assessed Scarring -Moisture (Lori-wound Skin Appearance) Dry/Scaly Assessed No Abnormality -Color (Lori-wound Skin Appearance) Hemosiderin Assessed Hemosiderin Staining Staining -Temperature (Lori-wound Skin No Abnormality No Abnormality No Abnormality Appearance) (Pt Warm) (Pt Warm) (Pt Warm) -Tenderness on Palpation (Lori-wound No No Skin Appearance) -Ulcer Cleansing Soap and Water Soap and Water Soap and Water -Foul Odor after Cleansing No No No -Anesthetic Used 5% Lidocaine 4% Lidocaine 5% Lidocaine Gel Solution Gel #1 LT LAT LE -Current Size (cm) - Length 9 9 8.7 -Current Size (cm) - Width 6.4 6 5 -Current Size (cm) - Depth 0.1 0.1 0.1 -Total Square Cm 57.6 54 43.5 -Date of Last Picture (Recall this 07/10/24 field) -Photo Taken Yes Yes -Tunneling No -Undermining/Tunneling No -Circular Undermining No -Exudate Amt Medium Medium Medium -Exudate Type Serosanguineous Yellow/Green Serosanguineous -Wound Margin Distinct, Flat & Intact Distinct, Outline Outline Attached Attached -Granulation Amt Medium (34-66%) Medium (34-66%) Medium (34-66%) -Granulation Quality Red Pale,[place] Red -Necrosis Amt Medium (34-66%) Medium (34-66%) Medium (34-66%) -Necrotic Tissue Type Adherent Slough Adherent Slough Adherent Slough -Structure Exposed N/A N/A -Texture (Lori-wound Skin Appearance) Scarring Assessed Scarring -Moisture (Lori-wound Skin Appearance) Dry/Scaly Assessed Maceration -Color (Lori-wound Skin Appearance) Hemosiderin Assessed Hemosiderin Staining Staining -Temperature (Lori-wound Skin No Abnormality No Abnormality No Abnormality Appearance) (Pt Warm) (Pt Warm) (Pt Warm) -Tenderness on Palpation (Lori-wound No No No Skin Appearance) -Ulcer Cleansing Soap and Water Not Cleansed Soap and Water -Foul Odor after Cleansing No No No -Anesthetic Used 5% Lidocaine 5% Lidocaine 4% Lidocaine Gel Gel Solution Lower Limb Edema Present No Left Calf (cm) 30.5 28 Left Ankle (cm) 21 Left Foot (cm) 21 07/24/24 10:45 Wound Center Nurse 1 #2 L Sup [place] -Current Size (cm) - Length -Current Size (cm) - Width -Current Size (cm) - Depth -Total Square Cm -Date of Last Picture (Recall this field) -Photo Taken -Tunneling -Undermining/Tunneling -Circular Undermining -Exudate Amt -Exudate Type -Wound Margin -Granulation Amt -Granulation Quality -Necrosis Amt -Necrotic Tissue Type -Structure Exposed -Texture (Lori-wound Skin Appearance) -Moisture (Lori-wound Skin Appearance) -Color (Lori-wound Skin Appearance) -Temperature (Lori-wound Skin Appearance) -Tenderness on Palpation (Lori-wound Skin Appearance) -Ulcer Cleansing -Foul Odor after Cleansing -Anesthetic Used #1 LT LAT LE -Current Size (cm) - Length 8 -Current Size (cm) - Width 4.5 -Current Size (cm) - Depth 0.1 -Total Square Cm 36.0 -Date of Last Picture (Recall this field) -Photo Taken -Tunneling -Undermining/Tunneling -Circular Undermining -Exudate Amt Small -Exudate Type Serous -Wound Margin Flat & Intact -Granulation Amt Medium (34-66%) -Granulation Quality [place] -Necrosis Amt Medium (34-66%) -Necrotic Tissue Type Adherent Slough -Structure Exposed N/A -Texture (Lori-wound Skin Appearance) No Abnormality -Moisture (Lori-wound Skin Appearance) No Abnormality -Color (Lori-wound Skin Appearance) No Abnormality -Temperature (Lori-wound Skin No Abnormality Appearance) (Pt Warm) -Tenderness on Palpation (Lori-wound No Skin Appearance) -Ulcer Cleansing Rinsed/ Irrigated with Saline -Foul Odor after Cleansing No -Anesthetic Used 5% Lidocaine Gel Lower Limb Edema Present Left Calf (cm) 28.5 Left Ankle (cm) 21.5 Left Foot (cm) WC - Nurse 2 - General Ulcer CM Notes Start: 07/03/24 11:51 Freq: Status: Active Protocol: Activity Type Activity Date Activity User E-sign Co-sign Detail Recorded Client Recorded Date Recorded By Document 07/03/24 12:04 [id number] 07/03/24 12:08 Document 07/10/24 11:42 JF [id number] 07/10/24 11:50 Document 07/17/24 10:57 [id number] 07/17/24 11:01 Edit Result 07/17/24 10:57 JF (1) 0000 07/22/24 12:07 Document 07/24/24 10:58 JF [id number] 07/24/24 11:01 JF (1) #1 LT LAT LE - Epifix Mesh Application 1-4 (per sq cm => 11 ) 07/03/24 07/10/24 07/17/24 12:04 11:42 10:57 Wound Center Nurse 2 #2 L Sup [place] -Time 12:04 11:43 -Correct Patient Yes Yes Yes -Correct Side, Site, Position Yes Yes No -Correct Procedure Yes Yes No -Procedure Performed Yes Yes No -Type of Procedure Debridement Debridement -Clinical Debridement Subcutaneous Subcutaneous -Tissue Removed Subcutaneous -Post Debridement (cm) - Length 1.1 1.2 0 -Post Debridement (cm) - Width 0.8 0.3 0 -Post Debridement (cm) - Depth 0.1 0.1 0 -Total Square (Post) (cm) 0.88 0.36 0 -Area of Debridement (cm) - Length 1.1 1.2 0 -Area of Debridement (cm) - Width 0.8 0.3 0 -Total Square (Area) (cm) 0.88 0.36 0 -Tunneling No No -Undermining/Tunneling No No -Circular Undermining No No -Wound/Ulcer Outcome Not Healed Not Healed Healed- Epithelialized -Ulcer Cleansing Rinsed/ Rinsed/ Irrigated with Irrigated with Saline Saline -Foul Odor after Cleansing No No -Bioengineered Tissue No No -Bleeding Controlled with Pressure Pressure -Treatment Response Procedure Procedure Tolerated Well Tolerated Well -Offloading No No -Debridement - Subq, 1st 20sq cm Yes Yes #1 LT LAT LE -Time 12:06 11:43 10:57 -Correct Patient Yes Yes Yes -Correct Side, Site, Position Yes Yes Yes -Correct Procedure Yes Yes Yes -Procedure Performed Yes Yes Yes -Type of Procedure Debridement Debridement Debridement -Clinical Debridement Subcutaneous Subcutaneous Subcutaneous -Tissue Removed Subcutaneous Subcutaneous Subcutaneous -Post Debridement (cm) - Length 9.1 9.8 8.7 -Post Debridement (cm) - Width 5.7 5.6 4.9 -Post Debridement (cm) - Depth 0.1 0.1 0.1 -Total Square (Post) (cm) 51.87 54.88 42.63 -Area of Debridement (cm) - Length 9.1 9.8 8.7 -Area of Debridement (cm) - Width 5.7 5.6 4.9 -Total Square (Area) (cm) 51.87 54.88 42.63 -Tunneling No No No -Undermining/Tunneling No No No -Circular Undermining No No No -Wound/Ulcer Outcome Not Healed Not Healed Not Healed -Ulcer Cleansing Rinsed/ Rinsed/ Rinsed/ Irrigated with Irrigated with Irrigated with Saline Saline Saline -Foul Odor after Cleansing No No No -Bioengineered Tissue Yes Yes Yes -Type of Bioengineered Tissue Epifix Mesh Epifix Mesh Epifix Mesh -Expiration Date 12/02/28 12/02/28 12/02/28 -Product Lot Number [id number] -Percent Used 100 100 100 -Lot number of Saline Used [id number] -Bleeding Controlled with Pressure Pressure Pressure -Treatment Response Procedure Procedure Procedure Tolerated Well Tolerated Well Tolerated Well -Offloading No No No -Debridement - Subq, 1st 20sq cm No No No -Apply Skin Sub - 1st 25 sq cm - Legs 1 1 1 -Apply Skin Sub - each addt'l 25 sq cm 2 2 2 - Legs -Epifix Mesh Application 1-4 (per sq 11 11 11 cm) Pain Scale: 0-10 Numeric Is Patient Pain Free? Yes Yes Yes 07/24/24 10:58 Wound Center Nurse 2 #2 L Sup [place] -Time -Correct Patient -Correct Side, Site, Position -Correct Procedure -Procedure Performed -Type of Procedure -Clinical Debridement -Tissue Removed -Post Debridement (cm) - Length -Post Debridement (cm) - Width -Post Debridement (cm) - Depth -Total Square (Post) (cm) -Area of Debridement (cm) - Length -Area of Debridement (cm) - Width -Total Square (Area) (cm) -Tunneling -Undermining/Tunneling -Circular Undermining -Wound/Ulcer Outcome -Ulcer Cleansing -Foul Odor after Cleansing -Bioengineered Tissue -Bleeding Controlled with -Treatment Response -Offloading -Debridement - Subq, 1st 20sq cm #1 LT LAT LE -Time 10:59 -Correct Patient Yes -Correct Side, Site, Position Yes -Correct Procedure Yes -Procedure Performed Yes -Type of Procedure Debridement -Clinical Debridement Subcutaneous -Tissue Removed Subcutaneous -Post Debridement (cm) - Length 8.9 -Post Debridement (cm) - Width 5 -Post Debridement (cm) - Depth 0.1 -Total Square (Post) (cm) 44.5 -Area of Debridement (cm) - Length 8.9 -Area of Debridement (cm) - Width 5 -Total Square (Area) (cm) 44.5 -Tunneling No -Undermining/Tunneling No -Circular Undermining No -Wound/Ulcer Outcome Not Healed -Ulcer Cleansing Rinsed/ Irrigated with Saline -Foul Odor after Cleansing No -Bioengineered Tissue Yes -Type of Bioengineered Tissue Epifix Mesh -Expiration Date 01/01/29 -Product Lot Number [id number] -Percent Used 100 -Lot number of Saline Used [id number] -Bleeding Controlled with Pressure -Treatment Response Procedure Tolerated Well -Offloading No -Debridement - Subq, 1st 20sq cm No -Apply Skin Sub - 1st 25 sq cm - Legs 1 -Apply Skin Sub - each addt'l 25 sq cm 1 - Legs -Epifix Mesh Application 1-4 (per sq 11 cm) Pain Scale: 0-10 Numeric Is Patient Pain Free? Yes WC - Nurse 3 - General Ulcer D/C NN Start: 07/03/24 11:51 Freq: Status: Active Protocol: Activity Type Activity Date Activity User E-sign Co-sign Detail Recorded Client Recorded Date Recorded By Document 07/03/24 12:17 DL [id number] 07/03/24 12:19 DL Document 07/10/24 11:57 MT [id number] 07/10/24 11:58 MT Document 07/17/24 11:22 GM [id number] 07/17/24 11:22 GM Edit Result 07/17/24 11:22 GM (1) [id number] 07/17/24 11:28 GM Document 07/24/24 11:13 CP [id number] 07/24/24 11:14 CP (1) Notes: => RECHECKED BLOOD PRESSURE AND HR, 182/98 91 => PATIENT ONLY TOOK HALF HIS BP MEDS THIS MORNING AND STATES HE WILL TAKE THE REST WHEN HE GETS HOME 07/03/24 07/10/24 07/17/24 12:17 11:57 11:22 Wound Care Center Nurse 3 #2 L Sup [place] -Ulcer Cleansing Rinsed/ Irrigated with Saline -Foul Odor after Cleansing No -Other Dressing ATB ointment abd -Primary Dressing Covered/Secured with Dry Gauze & Dry Gauze & Roll Gauze, Roll Gauze, Secured with Secured with Tape Tape #1 LT LAT LE -Ulcer Cleansing Not Cleansed -Foul Odor after Cleansing No -Primary Dressing Applied Silicone Border Foam 6x6 -Other Dressing Epifix abd -Primary Dressing Covered/Secured with Dry Gauze & Dry Gauze & Roll Gauze, Roll Gauze, Secured with Secured with Tape Tape,Other -Other Covering abd pad -Silicone Border Foam 6x6 1 LLE -Lotion applied to leg before No compression wrap -Tubular Bandage Single Layer Double Layer -Size of Tubigrip Used Size D Size F -Size D ($) 1 -Size F ($) 2 Treatment Response Procedure Tolerated Well Pain Scale: 0-10 Numeric Is Patient Pain Free? Yes Yes Yes WC - Visit Discharge Discharge Condition Stable Stable Stable Ambulatory Status Ambulatory, Ambulatory Ambulatory Walker Transportation Private Auto Private Auto Private Auto Medication Reconcilliation completed & No provided to patient/care provider Clinical Summary of Care Provided Yes Yes Notes: RECHECKED BLOOD PRESSURE AND HR, 182/98 91 PATIENT ONLY TOOK HALF HIS BP MEDS THIS MORNING AND STATES HE WILL TAKE THE REST WHEN HE GETS HOME Facility Type Home Health Orders Sent Yes 07/24/24 11:13 Wound Care Center Nurse 3 #2 L Sup [place] -Ulcer Cleansing -Foul Odor after Cleansing -Other Dressing -Primary Dressing Covered/Secured with #1 LT LAT LE -Ulcer Cleansing -Foul Odor after Cleansing -Primary Dressing Applied -Other Dressing -Primary Dressing Covered/Secured with Dry Gauze & Roll Gauze, Secured with Tape -Other Covering -Silicone Border Foam 6x6 LLE -Lotion applied to leg before compression wrap -Tubular Bandage Double Layer -Size of Tubigrip Used Size F -Size D ($) -Size F ($) 2 Treatment Response Pain Scale: 0-10 Numeric Is Patient Pain Free? 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 All findings were discussed with the patient. All questions were answered to the patient's satisfaction. Excisional debridement down to including subcutaneous tissue with a number 5 mm dermal curette to the left inferior full-thickness wound done without incident. Predebridement measurement was 8.7 x 4.8 x 0.1 cm. Postdebridement measurement is 8.9 x 5.0 x 0.1 cm. EpiFix 4.0 x 4.5 cm was applied to the left full-thickness ulceration with 100% use. Fourth application. The graft site was free and clear of any infection. The wound/skin graft substitute was dressed with nonadherent bandage secured in place with Steri-Strips followed by bolster dressing as well as a double layer Tubigrip. Educated the patient continue strict blood sugar control. Also educated patient to continue smoking sensation. Patient showed understanding of this will do his best to quit smoking. Follow-up at the wound care center with Dr. Jones in 1 week. 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
[2024-07-31 09:52] VITALS: BP 156/75; PULSE 100; RESP 16; TEMP 35.7; BMI 26.6
--- NOTE | 2024-08-05 11:31 | PN.PCM_ITS ---
History of Present Illness Date of Service: 07/31/24 Chief Complaint: Full-thickness laceration left leg History of Wound: Full-thickness laceration left leg Progress of Wound: Stable full-thickness wound left leg Subjective Subjective Patient is a 63-year-old male presenting to a care center today for follow-up and evaluation of left full-thickness wound secondary to trauma with amniotic skin graft substitute. Patient states his blood sugars well-controlled. He is slowing down on smoking. He admits the wound is improving. He denies any new onset of trauma. Denies constitutional symptoms. No other pedal complaints at this time. Objective Data Objective Data Vital Signs: Vital Signs Temp Pulse Resp BP O2 Del Method 96.2 F L 100 16 156/75 H Room Air 07/31/24 09:52 07/31/24 09:52 07/31/24 09:52 07/31/24 09:52 07/10/24 11:15 Oxygen Delivery Method Room Air Weight: 81.647 kg Body Mass Index (BMI) 26.6 Physical Exam Narrative Vascular: Audible Doppler sounds, DP is biphasic, PT is monophasic. Skin temperature gradient is warm to cool from proximal ankles to distal digits left lower extremity. CFT is brisk. No ecchymosis. Neurological: Light touch intact. Patient does respond to painful stimuli. Dermatological: Full-thickness wound to the superior aspect of the left lower extremity is now healed. Full-thickness wound to the left lower leg secondary to trauma, wound measurement is 8.5 x 3.8 x 0.1 cm. There is also evidence of multiple skin islands that have healed within the wound itself. No sign of infection. Excisional debridement down to including subcutaneous tissue with a number 5 mm dermal curette to the left inferior full-thickness wound done without incident. Predebridement measurement was 8.3 x 3.5 x 0.1 cm. Postdebridement measurement is 8.5 x 3.8 x 0.1 cm. EpiFix 4.0 x 4.5 cm was applied to the left full-thickness ulceration with 100% use. Fifth application. The graft site was free and clear of any infection. The wound/skin graft substitute was dressed with nonadherent bandage secured in place with Steri-Strips followed by bolster dressing as well as a double layer Tubigrip. Musculoskeletal: Mild pain on palpation to both wounds left lower extremity. No pain with calf compression bilateral. Debridement Note Debridement Note Debridement Free Text: Excisional debridement down to including subcutaneous tissue with a number 5 mm dermal curette to the left inferior full-thickness wound done without incident. Predebridement measurement was 8.3 x 3.5 x 0.1 cm. Postdebridement measurement is 8.5 x 3.8 x 0.1 cm. EpiFix 4.0 x 4.5 cm was applied to the left full-thickness ulceration with 100% use. Fifth application. The graft site was free and clear of any infection. The wound/skin graft substitute was dressed with nonadherent bandage secured in place with Steri-Strips followed by bolster dressing as well as a double layer Tubigrip. 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 All findings were discussed with the patient. All questions were answered to the patient's satisfaction. Excisional debridement down to including subcutaneous tissue with a number 5 mm dermal curette to the left inferior full-thickness wound done without incident. Predebridement measurement was 8.3 x 3.5 x 0.1 cm. Postdebridement measurement is 8.5 x 3.8 x 0.1 cm. EpiFix 4.0 x 4.5 cm was applied to the left full-thickness ulceration with 100% use. Fifth application. The graft site was free and clear of any infection. The wound/skin graft substitute was dressed with nonadherent bandage secured in place with Steri-Strips followed by bolster dressing as well as a double layer Tubigrip. Educated the patient continue strict blood sugar control. Also educated patient to continue smoking sensation. Patient showed understanding of this will do his best to quit smoking. Follow-up at the wound care center with Dr. Jones in 1 week. 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
== END 2024-07-31 23:59 | disposition home or self-care (01) ==
LOC: WC 09:30
PROVIDERS: PCP Preventive Medicine Occupational Medicine; Referring Provider Preventive Medicine Occupational Medicine; Visit Provider Podiatrist Foot & Ankle Surgery
DX: E11.621 Type 2 diabetes mellitus with foot ulcer (principal); L97.509 Non-pressure chronic ulcer of other part of unspecified foot with unspecified severity; L97.822 Non-pressure chronic ulcer of other part of left lower leg with fat layer exposed; Z79.4 Long term (current) use of insulin; E11.51 Type 2 diabetes mellitus with diabetic peripheral angiopathy without gangrene; S81.812S Laceration without foreign body, left lower leg, sequela; F17.200 Nicotine dependence, unspecified, uncomplicated; V48 Car occupant injured in noncollision transport accident; R60.0 Localized edema
CPT/HCPCS: 11042; 15271; 15272; 93923; 93970; Q4186

== ENCOUNTER 2024-08-28 10:15 | Outpatient (RCR) | payer MEDICARE, MEDICAID, SELFPAY ==
[2024-08-01 00:42] VITALS: BP 156/75; PULSE 100; RESP 16; TEMP 35.7; BMI 26.6
[2024-08-14 10:31] VITALS: BP 193/79; PULSE 97; RESP 18; TEMP 36.4; BMI 26.6
--- NOTE | 2024-08-14 11:59 | PN.PCM_ITS ---
History of Present Illness Date of Service: 08/14/24 Chief Complaint: Full-thickness laceration left leg History of Wound: Full-thickness laceration left leg Progress of Wound: Stable full-thickness wound left leg Subjective Subjective Patient is a 63-year-old diabetic male presenting to wound care center follow-up evaluation of full-thickness wound to lateral aspect of left leg. He has been getting skin graft substitute applications and notes great improvement with his wound. He does continue to smoke. His blood sugar is well-controlled. He did miss his last appointment due to car trouble but has gotten his car fixed. He denies any trauma. Denies constitutional symptoms. No other pedal complaints at this time. Objective Data Objective Data Vital Signs: Vital Signs Temp Pulse Resp BP O2 Del Method 97.6 F L 97 18 193/79 H Room Air 08/14/24 10:31 08/14/24 10:31 08/14/24 10:31 08/14/24 10:31 08/14/24 10:31 Oxygen Delivery Method Room Air Weight: 81.647 kg Body Mass Index (BMI) 26.6 Physical Exam Narrative Vascular: Audible Doppler sounds, DP is biphasic, PT is monophasic. Skin temperature gradient is warm to cool from proximal ankles to distal digits left lower extremity. CFT is brisk. No ecchymosis. Neurological: Light touch intact. Patient does respond to painful stimuli. Dermatological: Full-thickness wound to the superior aspect of the left lower extremity is now healed. Full-thickness wound to the left lower leg secondary to trauma, wound measurement is 8.3 x 4.0 x 0.1 cm there is also evidence of multiple skin islands that have healed within the wound itself. No sign of infection. Excisional debridement down to including subcutaneous tissue with a number 5 mm dermal curette to the left inferior full-thickness wound done without incident. Predebridement measurement was 8.1 x 3.8 x 0.1 cm. Postdebridement measurement is 8.3 x 4.0 x 0.1 cm. EpiFix 4.0 x 4.5 cm was applied to the left full-thickness ulceration with 100% use. Sixth application. The graft site was free and clear of any infection. The wound/skin graft substitute was dressed with nonadherent bandage secured in place with Steri-Strips followed by bolster dressing as well as a double layer Tubigrip. Musculoskeletal: Mild pain on palpation to both wounds left lower extremity. No pain with calf compression bilateral. Debridement Note Debridement Note Debridement Free Text: Excisional debridement down to including subcutaneous tissue with a number 5 mm dermal curette to the left inferior full-thickness wound done without incident. Predebridement measurement was 8.1 x 3.8 x 0.1 cm. Postdebridement measurement is 8.3 x 4.0 x 0.1 cm. EpiFix 4.0 x 4.5 cm was applied to the left full-thickness ulceration with 100% use. Sixth application. The graft site was free and clear of any infection. The wound/skin graft substitute was dressed with nonadherent bandage secured in place with Steri-Strips followed by bolster dressing as well as a double layer Tubigrip. Post-Debridement Measurements and Additional Note: Post-Debridement Measurements/Treatment - Nurse 1 - General Ulcer Assessment Start: 08/14/24 10:30 Freq: Status: Active Protocol: VIGNESH Activity Type Activity Date Activity User E-sign Co-sign Detail Recorded Client Recorded Date Recorded By Document 08/14/24 10:31 [id number] 08/14/24 10:40 08/14/24 10:31 - Today's Visit Information Type of service Follow-up Visit (Physician/SIGN DESIGNER ) Arrival Mode Ambulatory, Walker Patient Identification Verified (Name & Yes ) Patient Requires Transmission-Based No Precautions Height and Weight Body Mass Index (BMI) 26.6 BMI Classification Overweight Vital Signs Temperature (97.8 F-99.1 F) 97.6 F L Temperature Source Temporal Pulse Rate (60-100) 97 Pulse Location Monitor Respiratory Rate (12-18) 18 Respiratory rate source Observation Oxygen Delivery Method Room Air Blood Pressure (90/60-120/80) 193/79 H Blood Pressure Mean (mm Hg) 117 Comment has not taken his blood pressure medication today History Since Last Visit- (Skip if this is Patient's initial visit) Have you changed medications since your No last visit? Any new allergies or adverse reactions No Had a fall/change in ADL's that may No increase risk of falls Signs or symptoms of abuse and/or No neglect since last visit Have you been in the hospital since your No last visit? Has dressing in place as prescribed Yes Has compression in place as prescribed No Has offloadiing in place as prescribed N/A Experienced any changes in pain level or No management Left Footwear Slipper Pain Scale: 0-10 Numeric Is Patient Pain Free? Yes - Nurse 1 - General Ulcer Measurement Start: 08/14/24 10:30 Freq: Status: Active Protocol: Activity Type Activity Date Activity User E-sign Co-sign Detail Recorded Client Recorded Date Recorded By Document 08/14/24 10:31 [id number] 08/14/24 10:40 08/14/24 10:31 Wound Center Nurse 1 #1 LT LAT LE -Current Size (cm) - Length 7.7 -Current Size (cm) - Width 3.3 -Current Size (cm) - Depth 0.1 -Total Square Cm 25.41 -Photo Taken No -Epithelialization Small 1-33% -Tunneling No -Undermining/Tunneling No -Circular Undermining No -Exudate Amt Medium -Exudate Type Yellow/Green -Wound Margin Distinct, Outline Attached -Granulation Amt Medium (34-66%) -Granulation Quality [place] -Slough/Fibrin Yes -Necrosis Amt Medium (34-66%) -Necrotic Tissue Type Adherent Slough -Texture (Lori-wound Skin Appearance) Assessed -Moisture (Lori-wound Skin Appearance) Assessed -Color (Lori-wound Skin Appearance) Assessed -Tenderness on Palpation (Lori-wound No Skin Appearance) -Ulcer Cleansing Soap and Water -Foul Odor after Cleansing No -Anesthetic Used 4% Lidocaine Solution Lower Limb Edema Present Yes Left Calf (cm) 30.0 Left Ankle (cm) 22.2 - Nurse 2 - General Ulcer CM Notes Start: 08/14/24 10:30 Freq: Status: Active Protocol: Activity Type Activity Date Activity User E-sign Co-sign Detail Recorded Client Recorded Date Recorded By Document 08/14/24 10:49 [id number] 08/14/24 10:54 08/14/24 10:49 Wound Center Nurse 2 #1 LT LAT LE -Time 10:49 -Correct Patient Yes -Correct Side, Site, Position Yes -Correct Procedure Yes -Procedure Performed Yes -Type of Procedure Debridement -Clinical Debridement Subcutaneous -Tissue Removed Subcutaneous -Post Debridement (cm) - Length 8.3 -Post Debridement (cm) - Width 4.0 -Post Debridement (cm) - Depth 0.1 -Total Square (Post) (cm) 33.20 -Area of Debridement (cm) - Length 8.3 -Area of Debridement (cm) - Width 4.0 -Total Square (Area) (cm) 33.20 -Tunneling No -Undermining/Tunneling No -Circular Undermining No -Wound/Ulcer Outcome Not Healed -Ulcer Cleansing Rinsed/ Irrigated with Saline -Foul Odor after Cleansing No -Bioengineered Tissue Yes -Type of Bioengineered Tissue Epifix Mesh -Bleeding Controlled with Pressure -Treatment Response Procedure Tolerated Well -Offloading No -Debridement - Subq, 1st 20sq cm No -Apply Skin Sub - 1st 25 sq cm - Legs 1 -Apply Skin Sub - each addt'l 25 sq cm 1 - Legs -Epifix Mesh Application 1-4 (per sq 11 cm) Pain Scale: 0-10 Numeric Is Patient Pain Free? Yes - Nurse 3 - General Ulcer D/C NN Start: 08/14/24 10:30 Freq: Status: Active Protocol: Activity Type Activity Date Activity User E-sign Co-sign Detail Recorded Client Recorded Date Recorded By Document 08/14/24 11:17 [id number] 08/14/24 11:17 08/14/24 11:17 Wound Care Center Nurse 3 #1 LT LAT LE -Ulcer Cleansing Not Cleansed -Foul Odor after Cleansing No -Primary Dressing Covered/Secured with Dry Gauze & Roll Gauze, Secured with Tape LLE -Lotion applied to leg before No compression wrap -Tubular Bandage Double Layer -Size of Tubigrip Used Size F -Size F ($) 2 Pain Scale: 0-10 Numeric Is Patient Pain Free? Yes - Visit Discharge Discharge Condition Stable Ambulatory Status Ambulatory, Walker Transportation Private Auto Clinical Summary of Care Provided Yes Assessment/Plan Assessment/Plan (1) Type 2 diabetes mellitus with foot ulcer: CODE(S): E11.621 - Type 2 diabetes mellitus with foot ulcer; L97.509 - Non-pressure chronic ulcer of other part of unspecified foot with unspecified severity QUALIFIERS: Diabetes mellitus long term acute care registered nurse insulin use: with [facility] use Qualified Code(s): E11.621 - Type 2 diabetes mellitus with foot ulcer; L97.509 - Non-pressure chronic ulcer of other part of unspecified foot with unspecified severity; Z79.4 - assisted (current) use of insulin PLAN: Patient was examined and evaluated. All findings were discussed with the patient. All questions were answered to the patient's satisfaction. Excisional debridement down to including subcutaneous tissue with a number 5 mm dermal curette to the left inferior full-thickness wound done without incident. Predebridement measurement was 8.1 x 3.8 x 0.1 cm. Postdebridement measurement is 8.3 x 4.0 x 0.1 cm. EpiFix 4.0 x 4.5 cm was applied to the left full-thickness ulceration with 100% use. Sixth application. The graft site was free and clear of any infection. The wound/skin graft substitute was dressed with nonadherent bandage secured in place with Steri-Strips followed by bolster dressing as well as a double layer Tubigrip. Educated the patient continue strict blood sugar control. Also educated patient to continue smoking sensation. Follow-up at the wound care center with Dr. Jones in 1 week. 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
[2024-08-28 10:18] VITALS: BP 193/81; PULSE 99; RESP 20; TEMP 36.6; BMI 26.6
--- NOTE | 2024-08-28 18:28 | PN.PCM_ITS ---
History of Present Illness Date of Service: 08/28/24 Chief Complaint: Full-thickness laceration left leg History of Wound: Full-thickness laceration left leg Progress of Wound: Stable full-thickness wound left leg Subjective Subjective Patient is a 63-year-old diabetic male presenting to wound care center follow-up evaluation of full-thickness wound to lateral aspect of left leg. Patient has been compliant with dressing changes. Patient states that he will have to possibly leave the wound care center due to physical therapy commitment. He still continues to smoke. Denies trauma. Denies constitutional symptoms. No other pedal complaints at this time. Objective Data Objective Data Vital Signs: Vital Signs Temp Pulse Resp BP O2 Del Method 98 F 99 20 H 193/81 H Room Air 08/28/24 10:18 08/28/24 10:18 08/28/24 10:18 08/28/24 10:18 08/14/24 10:31 Oxygen Delivery Method Room Air Weight: 81.647 kg Body Mass Index (BMI) 26.6 Physical Exam Narrative Vascular: Audible Doppler sounds, DP is biphasic, PT is monophasic. Skin temperature gradient is warm to cool from proximal ankles to distal digits left lower extremity. CFT is brisk. No ecchymosis. Neurological: Light touch intact. Patient does respond to painful stimuli. Dermatological: Full-thickness wound to the left lower leg secondary to trauma, wound measurement is 7.5 x 3.2 x 0.1 cm. No sign of infection. Excisional debridement down to including subcutaneous tissue with a number 5 mm dermal curette to the left inferior full-thickness wound done without incident. Predebridement measurement was 7.3 x 3.1 x 0.1 cm. Postdebridement measurement is 7.5 x 3.2 x 0.1 cm. Musculoskeletal: No pain on palpation to both wounds left lower extremity. No pain with calf compression bilateral. Debridement Note Debridement Note Debridement Free Text: Excisional debridement down to including subcutaneous t issue with a number 5 mm dermal curette to the left inferior full-thickness wound done without incident. Predebridement measurement was 7.3 x 3.1 x 0.1 cm. Postdebridement measurement is 7.5 x 3.2 x 0.1 cm. 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 [employer]OR RELATIONS ) ) Arrival Mode Ambulatory, Ambulatory, Walker Walker Accompanied by self Patient Identification Verified (Name & Yes Yes ) Patient Requires Transmission-Based No Precautions Safety Precautions Fall Prevention Height and Weight Body Mass Index (BMI) 26.6 26.6 BMI Classification Overweight Overweight Vital Signs Temperature (97.8 F-99.1 F) 97.6 F L 98 F Temperature Source Temporal Temporal Pulse Rate (60-100) 97 99 Pulse Location Monitor Monitor Respiratory Rate (12-18) 18 20 H Respiratory rate source Observation Observation Oxygen Delivery Method Room Air Blood Pressure (90/60-120/80) 193/79 H 193/81 H Blood Pressure Mean (mm Hg) 117 118 Source Monitor Position Sitting Blood Pressure Location Left Arm Comment has not taken pt has taken bp his blood meds yet pressure medication today History Since Last Visit- (Skip if this is Patient's initial visit) Have you changed medications since your No last visit? Any new allergies or adverse reactions No Had a fall/change in ADL's that may No increase risk of falls Signs or symptoms of abuse and/or No neglect since last visit Have you been in the hospital since your No last visit? Has dressing in place as prescribed Yes Yes Has compression in place as prescribed No Yes Has offloadiing in place as prescribed N/A Yes Experienced any changes in pain level or No Yes management Left Footwear Slipper Regular Shoe Right Footwear Regular Shoe Pain Scale: 0-10 Numeric Is Patient Pain Free? Yes Yes - Nurse 1 - General Ulcer Measurement Start: 08/14/24 10:30 Freq: Status: Active Protocol: Activity Type Activity Date Activity User E-sign Co-sign Detail Recorded Client Recorded Date Recorded By Document 08/14/24 10:31 [id number] 08/14/24 10:40 Document 08/28/24 10:18 MT [id number] 08/28/24 10:27 MT 08/14/24 08/28/24 10:31 10:18 Wound Center Nurse 1 #1 LT LAT LE -Current Size (cm) - Length 7.7 7.2 -Current Size (cm) - Width 3.3 3.4 -Current Size (cm) - Depth 0.1 0.1 -Total Square Cm 25.41 24.48 -Photo Taken No -Epithelialization Small 1-33% -Tunneling No -Undermining/Tunneling No -Circular Undermining No -Exudate Amt Medium Medium -Exudate Type Yellow/Green Serosanguineous -Wound Margin Distinct, Flat & Intact Outline Attached -Granulation Amt Medium (34-66%) Medium (34-66%) -Granulation Quality [place] Pale,[place] -Slough/Fibrin Yes -Necrosis Amt Medium (34-66%) Medium (34-66%) -Necrotic Tissue Type Adherent Slough Adherent Slough -Texture (Lori-wound Skin Appearance) Assessed Assessed -Moisture (Lori-wound Skin Appearance) Assessed Assessed -Color (Lori-wound Skin Appearance) Assessed Assessed -Temperature (Lori-wound Skin No Abnormality Appearance) (Pt Warm) -Tenderness on Palpation (Lori-wound No No Skin Appearance) -Ulcer Cleansing Soap and Water Soap and Water -Foul Odor after Cleansing No No -Anesthetic Used 4% Lidocaine 5% Lidocaine Solution Gel Lower Limb Edema Present Yes Left Calf (cm) 30.0 32 Left Ankle (cm) 22.2 22 WC - Nurse 2 - General Ulcer CM Notes Start: 08/14/24 10:30 Freq: Status: Active Protocol: Activity Type Activity Date Activity User E-sign Co-sign Detail Recorded Client Recorded Date Recorded By Document 08/14/24 10:49 [id number] 08/14/24 10:54 Document 08/28/24 10:36 [id number] 08/28/24 10:38 08/14/24 08/28/24 10:49 10:36 Wound Center Nurse 2 #1 LT LAT LE -Time 10:49 10:36 -Correct Patient Yes Yes -Correct Side, Site, Position Yes Yes -Correct Procedure Yes Yes -Procedure Performed Yes Yes -Type of Procedure Debridement Debridement -Clinical Debridement Subcutaneous Subcutaneous -Tissue Removed Subcutaneous Subcutaneous -Post Debridement (cm) - Length 8.3 7.5 -Post Debridement (cm) - Width 4.0 3.2 -Post Debridement (cm) - Depth 0.1 0.1 -Total Square (Post) (cm) 33.20 24.00 -Area of Debridement (cm) - Length 8.3 7.5 -Area of Debridement (cm) - Width 4.0 3.2 -Total Square (Area) (cm) 33.20 24.00 -Tunneling No No -Undermining/Tunneling No No -Circular Undermining No No -Wound/Ulcer Outcome Not Healed Not Healed -Ulcer Cleansing Rinsed/ Rinsed/ Irrigated with Irrigated with Saline Saline -Foul Odor after Cleansing No No -Bioengineered Tissue Yes No -Type of Bioengineered Tissue Epifix Mesh -Bleeding Controlled with Pressure Pressure -Treatment Response Procedure Procedure Tolerated Well Tolerated Well -Offloading No No -Debridement - Subq, 1st 20sq cm No Yes -Debridement, SubQ, ea addt'l 20sq cm 1 or part thereof -Apply Skin Sub - 1st 25 sq cm - Legs 1 -Apply Skin Sub - each addt'l 25 sq cm 1 - Legs -Epifix Mesh Application 1-4 (per sq 11 cm) Pain Scale: 0-10 Numeric Is Patient Pain Free? Yes Yes - Nurse 3 - General Ulcer D/C NN Start: 08/14/24 10:30 Freq: Status: Active Protocol: Activity Type Activity Date Activity User E-sign Co-sign Detail Recorded Client Recorded Date Recorded By Document 08/14/24 11:17 [id number] 08/14/24 11:17 Document 08/28/24 10:53 DL [id number] 08/28/24 10:54 DL 08/14/24 08/28/24 11:17 10:53 Wound Care Center Nurse 3 #1 LT LAT LE -Ulcer Cleansing Not Cleansed Rinsed/ Irrigated with Saline -Foul Odor after Cleansing No No -Primary Dressing Applied C Hydrogel, NonAdherent Contact Layer -Primary Dressing Covered/Secured with Dry Gauze & Dry Gauze & Roll Gauze, Roll Gauze, Secured with Secured with Tape Tape -Hydrogel 1 LLE -Lotion applied to leg before No compression wrap -Tubular Bandage Double Layer Double Layer -Size of Tubigrip Used Size F Size E -Size E ($) 2 -Size F ($) 2 Treatment Response Procedure Tolerated Well Pain Scale: 0-10 Numeric Is Patient Pain Free? 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 All findings were discussed with the patient. All questions were answered to the patient's satisfaction. Excisional debridement down to including subcutaneous tissue with a number 5 mm dermal curette to the left inferior full-thickness wound done without incident. Predebridement measurement was 7.3 x 3.1 x 0.1 cm. Postdebridement measurement is 7.5 x 3.2 x 0.1 cm. The left lower extremities were cleaned and patted dry. Triple antibiotic and Adaptic were applied followed by dry sterile dressing and Tubigrip wrap. I recommended to the patient to continue to follow back to the wound care center even if he is doing physical therapy. I educated the the patient that is important to continue weekly follow-up due to the size and location of his wound, continue to educate the patient he is a great risk for deep tissue infection which could lead to loss of limb and possibly loss of life if the wound is untreated which she is understanding of. Educated the patient continue strict blood sugar control. Also educated patient to continue smoking sensation. Follow-up at the wound care center with Dr. Jones in 1 week. 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
== END 2024-08-31 23:59 | disposition home or self-care (01) ==
LOC: WC 10:15
PROVIDERS: PCP Preventive Medicine Occupational Medicine; Referring Provider Preventive Medicine Occupational Medicine; Visit Provider Podiatrist Foot & Ankle Surgery
DX: E11.621 Type 2 diabetes mellitus with foot ulcer (principal); L97.822 Non-pressure chronic ulcer of other part of left lower leg with fat layer exposed; S81.812S Laceration without foreign body, left lower leg, sequela; F17.200 Nicotine dependence, unspecified, uncomplicated; V48 Car occupant injured in noncollision transport accident
CPT/HCPCS: 11042; 11045; 15271; 15272; Q4186

== ENCOUNTER → 2024-10-28 | Outpatient (CLI) | payer MEDICARE, MEDICAID, SELFPAY ==
[2024-10-28 17:55] LABS: Creatinine, Urine (random) 105.00 mg/dL (39.00-259.00); Microalbumin,Random Urine < 12.0 mg/L (<20 mg/L)
[2024-10-28 20:00] LABS: Hematocrit 40.9 % (40-54); Hemoglobin 13.5 g/dL (13.0-16.5); Mean Corp Hgb Conc 33.0 g/dL (32-36); Mean Corpuscular Volume 98.3 fL (80-94); Mean Platelet Vol. 10.8 fl (6.2-12.0); Platelet Count 280 K/mm3 (150-450); RBC Distribution Width CV 15.3 % (11.6-14.6); RBC Distribution Width SD 55.5 fl (35.1-43.9); Red Blood Count 4.16 M/mm3 (4.6-6.2); White Blood Count 9.1 K/mm3 (4.4-11.0)
[2024-10-28 20:50] LABS: AST(SGOT) 18 U/L (<=37); Alanine Aminotransfer ALT/SGPT 14 U/L (<=46); Albumin, Serum 4.2 g/dL (3.4-4.8); Alkaline Phosphatase 40 U/L (40-129); Anion Gap 17 (5-15); BUN 14 mg/dL (4-19); BUN/Creat Ratio 13.2 RATIO (10-20); Calcium,Total 9.6 mg/dL (7.6-11.0); Carbon Dioxide 21.9 mmol/L (21.0-32.0); Chloride 102 mmol/L (98-108); Cholesterol 156 mg/dL (<=200); Globulin 2.3 g/dL (2.2-4.2); Glucose 84 mg/dL (70-99); Low Density Lipoprotein Calc. 65 mg/dL; Potassium 4.9 mmol/L (3.3-5.1); Triglycerides 122 mg/dL; Very Low Density Lipoprotein 24 mg/dL (5-40); cholesterol:hdl ratio screen 2.33
== END | disposition home or self-care (01) ==
PROVIDERS: PCP Preventive Medicine Occupational Medicine; Referring Provider Preventive Medicine Occupational Medicine; Visit Provider Preventive Medicine Occupational Medicine
DX: E11.9 Type 2 diabetes mellitus without complications (principal); Z86.79 Personal history of other diseases of the circulatory system; Z85.528 Personal history of other malignant neoplasm of kidney; E78.5 Hyperlipidemia, unspecified; I10 Essential (primary) hypertension
CPT/HCPCS: 36415; 80053; 80061; 82043; 82570; 83036; 85027